=== PATIENT | female | born 1965 | race Caucasian/White ===

== ENCOUNTER 2016-07-14 07:05 | Inpatient (IN) | payer OTHER ==
[~2016-07-14] VITALS: Ht 172.7 cm; Wt 67.0 kg
[2016-07-14] VITALS (8 sets, daily range): BP systolic 91–117; BP diastolic 46–68
[~2016-07-14 07:05] MED LIST: ACYCLOVIR200 MG PO; ALBUTEROL HFA60 DOSE IN; DUREZOL0.05 % OP; NAPROSYN250 MG PO; OMEPRAZOLE20 M1 PO; PENTAZOCINE PO; WELLBUTRIN SR200 MG PO
--- NOTE | 2016-07-14 07:35 | Preoperative Progress Note ---
Preop Note Details Current Status: No Changes Current Status Changes: Increased L hip pain. No hx DVT/PE or infxn. Dilaudid for post-op pain given reactions to Morphine (anaphlaxis) and codeine (N?/V). Physical Exam: No Changes Physical Exam Changes: Operative site skin clear and marked. Necessity: Still desired/necessary
--- NOTE | 2016-07-14 08:41 | DIAGNOSTIC IMAGING REPORT ---
PROCEDURE: XR CHEST 1 VIEW INDICATION: PRE-OP CHEST, RT. HIP SURGERY TECHNIQUE: Portable AP view 06:15 a.m. COMPARISON: Chest x-ray 06/15/2016 FINDINGS: Lungs are clear. Hyperinflation. Heart and mediastinum are normal. Right axillary surgical clips. Thorax is normal. IMPRESSION: 1. No acute changes 2. Hyperinflation
--- NOTE | 2016-07-14 13:04 | Postoperative Progress Note ---
Postop Progress Note Preoperate Diagnosis: L femoral head AVN after femoral neck fx Postoperative Diagnosis: same Surgeon: Lucho Call MD Anesthesia: General ETT Findings: see dictation Procedure: Removal of cannulated screws and L total hip arthroplasty Complications? No Condition: Stable EBL: 550 mL Fluid(s): 1900 mL Drain(s): Hemovac, to be off suction until patient leaves PACU Blood Administered: None Specimen(s) removed? Yes (Femoral head and swab of screw) Specimen removed/disposition: Femoral head and swab of screw Grafts or Implants? Yes (see chart stickers) Graft/Implant type: See chart stickers . (See nursing notes for details of grafts/implants)
--- NOTE | 2016-07-14 13:50 | DIAGNOSTIC IMAGING REPORT ---
PROCEDURE: XR HIP 2VW W W/O AP PELVIS-LT INDICATION: s/p L PENNY TECHNIQUE: AP view of the pelvis and hips with lateral view of the left hip. COMPARISON: Left hip films 08/06/2015 FINDINGS: Left HIP: Total hip replacement. No fracture or dislocation. Drain is in place. PELVIS: Osseous pelvis is normal. IMPRESSION: 1. Negative pelvis and total left hip replacement.
--- NOTE | 2016-07-14 20:57 | OPERATIVE REPORT ---
DATE OF SURGERY: 07/14/2016 SURGEON: Lucho Call MD [employer] TE[employer]ER: None. PREOPERATIVE DIAGNOSIS: 1. 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 Removal of cannulated screws and left total hip arthroplasty with Sharif and Nephew Synergy hydroxyapatite plus porous-coated size 14 high offset femoral component, 36 mm diameter, +4 neck length Oxinium femoral head and 56 mm diameter R3 acetabular shell with 1 screw and lateral offset 20-degree elevated highly cross-linked polyethylene liner ANESTHESIA: General endotracheal. PATHOLOGY SPECIMEN: Swab of screw contents for Gram stain and culture, and femoral head for pathology. ESTIMATED BLOOD LOSS: 550 mL. URINE OUTPUT: 400 mL per Davis. FLUIDS: Blood replacement 1900 mL intravenous crystalloid fluids. No blood products. COMPLICATIONS: None apparent. CONDITION: Of patient leaving the operating room stable and satisfactory. INDICATIONS: A 51-year-old female sustained a valgus-impacted femoral neck fracture in 01/2015. She was treated with in situ cannulated screw fixation and went on to develop avascular necrosis with collapse and hip pain, which was refractory to corticosteroid injections and she was therefore indicated for the above-listed procedure. There was no evidence of infection at any time in her course. SURGICAL FINDINGS: The fracture appeared healed. The femoral head was aspherical with evidence of collapse. There were degenerative changes on both sides of the joint. There was yellow fluid that exuded from the first cannulated screw removed, felt likely to be marrow fat. It was sent for Gram stain and culture. There were rare white blood cells and no definitive organisms seen on Gram stain. The fracture appeared healed without evidence of osteomyelitis or septic arthritis on direct inspection. After replacement the hip was stable to nearly 90 degrees of internal rotation and 60 degrees of flexion and maximum abduction to 75 degrees of internal rotation and 90 degrees of flexion and neutral adduction. Leg lengths were felt to be clinically equal with good soft tissue tension. Postoperative plan: She will be weightbearing as tolerated. Have posterior hip precautions for 6 weeks. Deep venous thrombosis prophylaxis will be with DARELL hose pneumatic compression devices while in bed and enteric-coated aspirin 325 mg twice daily. The latter will be continued for 6 weeks postoperatively. She will return to clinic in 2 weeks' time for a wound check, 6 weeks' time for x-rays. She will have physical therapy. She will call or return for any signs or symptoms of thromboembolic disease or infection. SURGICAL TECHNIQUE: The patient was identified in the preoperative holding area. She denied any interval change in her medical condition except for increased left hip pain. She was seen and evaluated by Anesthesia after I marked her operative site and reviewed the consent form. She was brought back to the operating room, general endotracheal anesthesia was administered along with 2 g of cefazolin intravenously for antibiotic prophylaxis and 1 g of tranexamic acid. Surgical pause was completed, confirming the correct patient, operative site, procedure, appropriate availability of implants and instrumentation after the patient was positioned in the left side up lateral decubitus position on the pegboard positioner with axillary roll. We confirmed the patient 's identity. I reviewed her allergies and that appropriate thromboembolic prophylaxis and antibiotic prophylaxis were in place as described above. Everyone in the room including surgical nursing and anesthetic team members agreed that we should proceed. The leg was prepped with a safe wipe and then prepped with ChloraPrep in a circumferential sterile fashion, including the entire left hindquarter all the way down to and including the toes. Skin was sealed with Ioban. A posterior approach to the hip was performed with a sharp incision through skin and dermis. Electrocautery through subcutaneous adipose tissue, splitting the gluteus amber in line with its fibers, placing the Charnley retractor, released the piriformis from its insertion and tagged it with #2 FiberWire, performed a hockey stick capsulotomy and tagged it with two # 2 FiberWires and this included the short external rotators. These tag stitches were used for retraction and subsequent repair. The hip was dislocated posteriorly and then re-reduced into the acetabulum. The incision was carried distally and the 3 screw heads identified. The screwdriver for the acetabular screws fit the screw heads nicely and they were used to retrieve the 3 screws. The first screw in the process of removal produced a yellow fluid through the cannula, which was swabbed and sent for Gram stain and culture. Later in the case the Gram stain report showed rare white blood cells and no definitive organisms by verbal report from the circulating nurse. The 3 screws were removed and then the hip was re-dislocated. The template was placed and the proximal femoral osteotomy was made with an oscillating saw, approximately 1 cm proximal to the lesser trochanter. The femoral head was removed and sized to approximately 54 mm diameter. The soft tissue contents of the pulvinar were removed with electrocautery and hemostasis was obtained with electrocautery. The acetabular labrum was sharply excised. We began reaming with a 44 mm diameter acetabular reamer to set depth and then gradually increase the diameter to match the choctaw acetabulum in 2 mm increments at first and then single millimeter increments until we reached 55 mm where there was good punctate bleeding bone circumferentially. There is a small cyst in the acetabulum, which was curetted and found to be very shallow. The acetabulum was trialed with a 55 trial, which seemed to fit well. The definitive 56 mm R3 porous-coated acetabular shell was impacted into position and approximately 40 degrees of abduction and 20 degrees of anteversion. There was desire to increase the polyethylene thickness due to the patient's young age and therefore a +4 lateral offset acetabular liner was selected with a 20-degree elevated posterior lip for additional stability due to the posterior approach. This liner was placed after a single screw was drilled and depth gauged and placed in the acetabular component for additional stability given the plan to place a lateralizing acetabular liner with posterior elevation. The scratch fit of the acetabular shell; however, prior to placement of the screw it was felt to be excellent. Once this was completed, the acetabulum was packed off with a clean lap sponge and the proximal femur was delivered into the wound. We began with the Charnley canal finder, suctioned the canal contents, used a 9 mm reamer and lateralized and then progressively reamed up until the 14 mm reamer was felt to have cortical engagement. Next, we broached beginning with a size 9 [address] and all the way up to the size 14 broach, which obtained good purchase in appropriate anteversion and we endeavored to prevent valgus at the stem while doing this. The small and then large calcar planers were utilized, followed by a rongeur to smooth off the calcar, which was inspected and found to be intact without any splits. Next, the high offset neck adapter was placed with a 36 mm trial, +0 neck length. This was felt to provide slightly less than physiologic soft tissue tension and stability, and leg lengths were also slightly suboptimal. With the +4 neck length, the leg lengths were felt to be equal with good soft tissue tension and the stability was as described above in the operative findings to absolute stability anteriorly and extension and external rotation and adduction and excellent stability in the position of sleep with 60 degrees of flexion, maximum adduction and nearly 90 degrees of internal rotation and to nearly 75 degrees of internal rotation and 90 degrees of flexion and neutral adduction. In both cases the posterior instability was due to the femoral neck contacting the anterior acetabular liner. These findings were felt to be satisfactory. The trial components were removed, including the broach. The canal was irrigated with pulse lavage briefly and then the definitive size 14 Synergy high offset hydroxyapatite plus porous-coated stem was impacted into position and found to have an excellent press-fit. We next retrialed with the +4 , 36 neck head and found this reproduced the stability described above. The definitive Oxinium femoral head 36 mm in diameter with +4 neck length was impacted into position on a clean and dry trunnion. The hip was reduced, again trial range of motion, soft tissue tension and leg lengths were as described above and then the wound was copiously irrigated with pulsatile lavage and closed in layers over a 1/8 inch Hemovac exiting anteriorly and inferiorly. The capsule was closed with two #2 FiberWire through drill holes in the greater trochanter. The piriformis was tied down to the abductor tendon insertion just proximal to the greater trochanter. The fascia was closed with [id number] 0 Vicryl interrupted sutures. Florecita fascia was closed with [id number] 2-0 Vicryl interrupted sutures, subdermal stitch was inverted, undyed 2-0 Vicryl and the skin was closed with 3-0 V-Loc subcuticular sutures, Steri-Strips and Dermabond was used on the skin. Xeroform, 4 x 4's, ABD, and micropore tape comprised the dressing. The drain was used to instill 30 mL of 0.25% Marcaine with epinephrine and 1 g of tranexamic acid directly into the wound. We made sure that the drain was not tied in with the sutures and the drain was left off suction until the patient left the recovery room. The patient was undraped, fit with an abduction pillow, extubated in the operating room, brought to the recovery room in stable and satisfactory condition having tolerated the procedure well without apparent complication. All sponge, needle and instrument counts were reported correct prior to leaving the operating room.
[2016-07-15 05:36] VITALS: BP 92/53
[2016-07-15 06:55] VITALS: BP 93/38
--- NOTE | 2016-07-15 07:00 | Progress Note ---
Subjective General C/O hip pain but "different" then pre-op. Davis out, OOB to bathroom with RN. SCDs not connected. Denies CP, SOB, numbness or weakness as well as N/V. Constitutional Denies: Fever, Chills, Sweats, Weakness, Malaise. Respiratory Denies: SOB w/exertion. Cardiovascular Denies: Chest Pain, Palpitations. Neurological Denies: Weakness, Numbness, Incoordination, Change in speech, Confusion, Seizures. Physical Exam Vital Signs / I&Os Vital Signs Date Time Temp Pulse Resp B/P Pulse O2 O2 Flow FiO2 Ox Delivery Rate 07/15 0536 36.4 65 16 92/53 100 Room Air 07/14 2244 36.7 71 16 99/52 98 Nasal Cannula 07/14 2037 36.9 78 16 103/46 99 / 1600 36.0 63 15 114/67 100 Nasal 3.0 Cannula / 1530 36.0 71 15 116/62 100 Nasal 3.0 Cannula / 1458 36.1 82 15 109/61 100 Nasal 3.0 Cannula /03 1443 36.1 92 15 91/68 100 Nasal 3.0 Cannula 01/03 1428 35.9 68 15 113/51 100 Nasal Cannula 01/03 1412 35.9 68 15 117/60 100 Nasal 3.0 Cannula /03 1404 36.8 85 16 121/78 100 Nasal 3.0 Cannula 01/03 1355 85 15 126/77 100 Nasal 4.0 Cannula 01/03 1350 78 15 121/60 100 Nasal 3.0 Cannula 01/03 1345 95 22 108/73 100 Nasal 4.0 Cannula 01/03 1340 95 16 131/69 100 Nasal 3.0 Cannula 01/03 1335 85 12 131/69 100 Nasal 4.0 Cannula 01/03 1330 101 14 108/66 100 Nasal 4.0 Cannula 01/03 1325 83 14 108/66 100 Nasal 4.0 Cannula 01/03 1320 91 16 116/61 100 Nasal 4.0 Cannula 01/03 1315 90 15 111/64 100 Nasal 3.0 Cannula 01/03 1310 96 22 123/71 100 Nasal 3.0 Cannula 01/03 1305 80 12 106/66 94 Nasal 3.0 Cannula 01/03 1300 77 12 112/60 98 Nasal 3.0 Cannula 01/03 1255 92 13 113/66 100 Nasal 3.0 Cannula 07/14 1250 88 12 107/58 100 Nasal 3.0 Cannula 07/14 1245 92 15 107/60 100 07/14 1240 96 16 107/60 100 07/14 1235 100 14 117/61 100 Mask 6.0 07/14 1230 99 26 112/67 100 Mask 6.0 07/14 1225 86 11 111/58 100 Mask 6.0 07/14 1223 36.6 94 16 103/66 100 Mask 6.0 I&O 07/15 0000 07/14 1600 07/14 0800 Intake Total 630 3000 160 Output Total 1240 1040 Balance -610 1960 160 HVAC output 240 post-op, pt states 80 last shift. General Appearance Alert, Oriented X3, Cooperative, No acute distress Extremities Abduction pillow inplace. No apparent leg length or rotational assymetry. Dressing CDI. Bloody drainage in drain cannister. SCDs on but not connected! Skin No Breakdown, [place] and warm. Neurological Normal exam, Sensation intact, No lateralizing signs, Fires L AD& PFs & E&FHLs. Psych/Mental Status Mental status normal, Mood normal LAB Results Laboratory Tests 07/15 0600 Chemistry Plasma Sodium (136 - 145 mmol/L) 143 Plasma Potassium (3.5 - 5.1 mmol/L) 3.6 Plasma Chloride (98 - 107 mmol/L) 109 CO2 (Enzymatic) (21 - 32 mmol/L) 29 BUN (7 - 18 mg/dL) 14 Creatinine (0.6 - 1.3 mg/dL) 0.9 Est GFR ( Amer) (mL/min) >60 Est GFR (Non-Af Amer) (mL/min) >60 Glucose (70 - 110 mg/dL) 190 Plasma Calcium (8.5 - 10.1 mg/dL) 7.4 Hematology Hgb (12.0 - 16.0 gm/dL) 8.5 Hct (36.0 - 46.0 %) 26.0 Microbiology Date/Time Procedure - Status Source Growth 07/14 929 Deep Wound Culture - RES HIP 07/14 929 Deep Wound Culture - RES HIP 07/14 929 Gram Stain - RES HIP All cultures NGTD. Imaging PACU AP pelvis and lateral show well positioned L PENNY, reduced, no periprosthetic fx, good acetabular component position. Assessment and Plan Problem List 1. Status post total replacement of left hip Status Acute Onset Date 07/14/16 Plan PT, posterior hip precautions. TEDs, SCDs (now on) and ECASA 325 2x/day x 6 weeks. Leave drain for now, recheck Hct tomorrow.
[2016-07-15 10:52] VITALS: BP 109/54
[2016-07-15 14:25] VITALS: BP 105/50
[2016-07-15 18:15] VITALS: BP 128/59
[2016-07-15 22:34] VITALS: BP 108/60
[2016-07-16 02:59] VITALS: BP 101/51
--- NOTE | 2016-07-16 07:01 | Progress Note ---
Subjective General C/O L heel pain. James PO, Voiding, No BM yet. PT to work on stairs and rec DC home with boyfriend. Using PO pain meds only (ioncl dilaudid) Constitutional Denies: Fever, Chills, Sweats, Weakness, Malaise. Respiratory Denies: SOB w/exertion. Cardiovascular Denies: Chest Pain. Physical Exam Vital Signs / I&Os Vital Signs Date Time Temp Pulse Resp B/P Pulse O2 O2 Flow FiO2 Ox Delivery Rate 07/16 0259 36.7 69 16 101/51 99 Room Air 07/15 2234 36.8 85 16 108/60 96 Room Air 07/15 1815 37.3 90 18 128/59 99 Room Air 07/15 1425 36.9 75 18 105/50 100 Room Air 07/15 1052 36.7 81 16 109/54 100 Room Air 3.0 07/15 1045 100 I&O 07/16 0000 07/15 1600 07/15 0800 Intake Total 1462 1410 2372 Output Total 1580 2190 780 Balance -118 -780 1592 General Appearance Alert, Oriented X3, Cooperative, No acute distress Extremities No edema, No visible lesion on L heel. Calfs not tender. Dressings DCI. Drain clotted when removed. Skin No Breakdown, No Significant Lesions Neurological Normal exam, Sensation intact, No lateralizing signs Psych/Mental Status Mental status normal, Mood normal LAB Results Laboratory Tests 07/16 0600 Hematology Hgb (12.0 - 16.0 gm/dL) 8.0 Hct (36.0 - 46.0 %) 24.7 Assessment and Plan Problem List 1. Status post total replacement of left hip Status Acute Onset Date 07/14/16 Plan Drain removed. Continue PT anticipated DC home this pm or tomorrow when cleared by PT and after BM.
[2016-07-16 07:07] VITALS: BP 104/51
[2016-07-16 14:55] VITALS: BP 128/71
[2016-07-16 18:50] VITALS: BP 119/60
[2016-07-16 23:33] VITALS: BP 119/53
[2016-07-17 02:10] VITALS: BP 98/52
[2016-07-17 07:22] VITALS: BP 119/74
--- NOTE | 2016-07-17 07:48 | Progress Note ---
Subjective General No new c/o. No BM yet. Awaiting PT to document safety on stairs for DC home today. Constitutional Denies: Fever, Chills, Sweats, Weakness, Malaise. Musculoskeletal Foot Pain (heel pain improving.). Neurological Denies: Weakness, Numbness. Physical Exam Vital Signs / I&Os Vital Signs Date Time Temp Pulse Resp B/P Pulse O2 O2 Flow FiO2 Ox Delivery Rate 07/17 0722 37.2 80 18 119/74 98 Room Air 0.0 07/17 0210 36.8 80 16 98/52 96 Room Air 07/16 2333 37.2 89 16 119/53 98 Room Air 07/16 2045 Room Air 07/16 1850 37.7 87 18 119/60 98 Room Air 07/16 1455 36.9 84 18 128/71 100 Room Air 07/16 0859 Room Air I&O 07/17 0000 07/16 1600 07/16 0800 Intake Total 899 1200 1375 Output Total 2200 1400 1070 Balance -1301 -200 305 General Appearance Alert, Oriented X3, Cooperative, No acute distress Extremities SCDs off, TEDs on. Calf nontender. No LLD. Skin Incision CDI, new dressings applied Neurological Normal exam, No lateralizing signs Psych/Mental Status Mental status normal, Mood normal LAB Results Laboratory Tests 07/17 0555 Hematology Hgb (12.0 - 16.0 gm/dL) 8.5 Hct (36.0 - 46.0 %) 26.2 All intra-op cultures No Growth to date. Assessment and Plan Problem List 1. Status post total replacement of left hip Status Acute Onset Date 07/14/16 Plan Doing well POD#3. Anticipate3 DC home today after BM and cleared by PT. RTC ~ 2 weeks already scheduled. ECASA 325mg 2x/day x 6 weeks.
[2016-07-17] MEDS ORDERED: TYLENOL325 MG PO (07:57)
[2016-07-17] MEDS ORDERED: FERROUS SULFAT324 M1 PO (07:57)
[2016-07-17] MEDS ORDERED: ENTERIC COATED325 M1 PO (07:59)
[2016-07-17] MEDS ORDERED: HYDROMORPHONE HC2 MG PO (08:00)
[2016-07-17] MEDS ORDERED: BISAC-EVAC10 MG PR (08:01)
[2016-07-17] MEDS ORDERED: DOCUSATE SODIU100 MG PO (08:01)
--- NOTE | 2016-07-17 08:06 | Provider's Discharge Care Plan ---
Problem, Goal, Plan Problem List 1. Status post total replacement of left hip Goals: No readmissions, see last progress note Instructions: Follow up as needed (Keep dressing on and dry.), Follow up as directed, Take meds as directed
--- NOTE | 2016-07-17 13:35 | Discharge Summary ---
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 Hospital Course Had screw removal, culture and left total hip replacement via posterior approach on day of admission. Intra-op cultures have been no growth. Drain removed POD# 2, pain controlled with PO hydromorphone, voiding and finally had bowel movement after suppository on day of discharge. Cleared for DC home by PT. Incisions looked good at time of DC. General Appearance Alert, Oriented X3, Cooperative, No acute distress Skin No Breakdown Neurological Sensation intact, motor function intact Psych/Mental Status Mental status NL, Mood NL Lab/Imaging Laboratory Tests 07/17 0555 Hematology Hgb (12.0 - 16.0 gm/dL) 8.5 Hct (36.0 - 46.0 %) 26.2 Discharge Instructions/Meds Keep incsions dressed and dry until f/u in clinic in 2 weeks. ECASA 325 mg 2x/ day x 6 weeks. WBAT with L posterior hip precautions x 6 weeks. Call for fever > 101F, signs of infection, CP or SOB.
== END 2016-07-17 11:42 | disposition home or self-care (01) | DRG 470 ==
LOC: SCU SRH 07:05 → U SRH 07:30 → ACUTE2 SRH 12:56
PROVIDERS: ADMIT Orthopaedic Surgery
PROC: 0SRB0JA Replacement of Left Hip Joint with Synthetic Substitute, Uncemented, Open Approach (ICD-10-PCS; principal; 2016-07-14 07:30)
PROC: 0QP704Z Removal of Internal Fixation Device from Left Upper Femur, Open Approach (ICD-10-PCS; principal; 2016-07-14 07:30)
DX: M87.252 Osteonecrosis due to previous trauma, left femur (principal); Z87.81 Personal history of (healed) traumatic fracture; M16.7 Other unilateral secondary osteoarthritis of hip; J44.9 Chronic obstructive pulmonary disease, unspecified; E11.9 Type 2 diabetes mellitus without complications; F17.210 Nicotine dependence, cigarettes, uncomplicated

== ENCOUNTER 2016-11-02 13:55 | Emergency (ER) | payer SELFPAY ==
[~2016-11-02 13:55] MED LIST changes: +BISAC-EVAC10 MG PR; +DOCUSATE SODIU100 MG PO; +ENTERIC COATED325 M1 PO; +FERROUS SULFAT324 M1 PO; +HYDROMORPHONE HC2 MG PO; +TYLENOL325 MG PO
--- NOTE | 2016-11-02 15:34 | DIAGNOSTIC IMAGING REPORT ---
PROCEDURE: CT HEAD WITHOUT CONTRAST INDICATION: HEADACHE TECHNIQUE: Axial CT images were acquired through the head. Coronal and sagittal reformations were created. COMPARISON: : Comparison is made to MRI brain (09/24/2014), and head CT (12/14/2014). FINDINGS: Suboccipital craniectomy with normal postoperative appearance. 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 Brain ventricles are otherwise normal and there is no evidence of acute process or hemorrhage. There is no evidence of mass effect hydrocephalus. Sinuses and mastoids are normal. IMPRESSION: 1. Suboccipital craniectomy with normal postoperative appearance. 2. Otherwise negative head CT. 3. Findings discussed with Toyin at 03:[address] scans at this facility use dose modulation, iterative reconstruction, and/or weight-based dosing when appropriate to reduce radiation dose to as low as reasonably achievable.
--- NOTE | 2016-11-02 18:57 | ED ORDER SUMMARY ---
..... Patient: LEONILA KIM OrderSheet [facility] VisitID: [id number] [address] [place] [address] 51y, F Registration Date/Time: 11/02/2016 ORDER SHEET Weight: 54.4 kg (stated) Allergies: Codeine, Morphine and Related GENERAL ORDERS: CT Head wo Cont Urgent (14:24 11/02/2016 EKoroleva P.A.-C) (Ack 14:26 KHoerner) (15:10 JBoardley R.N.) CBC w Diff Urgent (14:25 11/02/2016 EKoroleva P.A.-C) (Ack 14:26 KHoerner) (14:43 JBoardley R.N.) CMP Urgent (14:11/02/2016 EKoroleva P.A.-C) (Ack 14:26 KHoerner) (14:43 JBoardley R.N.) CSF, Cell Count Urgent (16:25 11/02/2016 EKoroleva P.A.-C) (Ack 16:26 KHoerner) (18:02 JSanders R.N.) CSF, Culture Urgent (16:25 11/02/2016 EKoroleva P.A.-C) (Ack 16:26 KHoerner) (18:02 JSanders R.N.) CSF, Glucose Urgent (16:25 11/02/2016 EKoroleva P.A.-C) (Ack 16:26 KHoerner) (18:02 JSanders R.N.) CSF, Protein Urgent (16:25 11/02/2016 EKoroleva P.A.-C) (Ack 16:26 KHoerner) (18:02 JSanders R.N.) LP Tray (16:25 11/02/2016 EKoroleva P.A.-C) (Ack 16:31 JBoardley R.N.) (17:02 JSanders R.N.) MEDICATION ORDERS: Meclizine PO 25 mg (NOW) (14:25 11/02/2016 EKoroleva P.A.-C) (Ack 14:31 JBoardley R.N.) (14:49 JBoardley R.N.) Phenergan IV 12.5 mg (HIGH ALERT MEDICATION, NOW) (14:25 11/02/2016 EKoroleva P.A.-C) (Ack 14:31 JBoardley R.N.) (14:50 JBoardley R.N.) IV FLUIDS: IV NS : initial bolus 1000 mL (1000 mL/hr), then 1000 mL/hr for X1 (NOW); Arjun (14:25 11/02/2016 EKoroleva P.A.-C) (Ack 14:31 JBoardley R.N.) (14:44 JBoardley R.N.) Toradol IV 30 mg (NOW) (14:11/02/2016 EKoroleva P.A.-C) (Ack 14:31 JBoardley R.N.) (14:49 JBoardley R.N.) Benadryl IV 25 mg (NOW) (14:11/02/2016 EKoroleva P.A.-C) (Ack 14:31 JBoardley R.N.) (14:50 JBoardley R.N.) Dilaudid IV 1 mg (HIGH ALERT MEDICATION, NOW) (18:02 11/02/2016 EKoroleva P.A.-C) (Ack 18:05 JSanders R.N.) (18:14 JSanders R.N.) ORDER SHEET NOTES: [Electronically signed by Luz Maria Jones R.N. (19:19 11/02/2016)] [Electronically signed by Michell Deal PKeonAKeon-C (23:44 11/02/2016)] [Electronically signed by Abiel Crabtree MD (23:32 11/03/2016)] [Electronically locked/signed by Luz Maria Jones R.N. (19:19 11/02/2016)]
--- NOTE | 2016-11-02 18:57 | ED NURSING NOTES ---
Clinical Report - Nurses [facility] [address] [place] [address] 11/02/2016 13:57 [id number] TRI[facility] Triage time 14:05. Acuity: LEVEL 4. Chief Complaint: MIGRAINE HEADACHE. 14:11/02/16. 14:11/02/16. Alert. No acute distress. ( Migraine BRODY that started 4 days ago. Pt states her pain is radiating from her forehead down left side of face.). SEPSIS SCREEN: Sepsis Screen. Negative (no infection suspected/documented). SANTINO COMA SCORE: Santino Coma Scale: 15- eyes open spontaneously (4); best verbal response- oriented x 4 (5); best motor response- obeys commands (6). --14:12 Justus Fierro R.N. 14:11/02/16. BP: 141/94. HR: 74. RR: 18. O2 saturation: 100% on room air. Temp: 98.1 F (oral). Pain level now: 01/18. --14:12 Justus Fierro R.N. Weight: 54.4 kg stated. Height/Length: 68 inches Per Patient. BMI: 18.2. --14:06 Justus Fierro R.N. Medications Acyclovir External. --14:08 Justus Fierro R.N. Wellbutrin Oral. --14:09 Justus Fierro R.N. Medication/allergy information source: the patient. --14:12 Justus Fierro R.N. Allergies Codeine. Morphine and Related. --14:08 Justus Fierro R.N. History Arrived by private vehicle. Historian: patient. Accompanied by family. Primary physician (NONE). 14:06 11/02/16. ( 4 days ago). Treatment NETWORK DESIGNER: (Naproxen at 0400). PAST MEDICAL HX: Immunizations: up-to-date. SOCIAL HX: Current every day light tobacco smoker (cigarette)- less than 1/2 a pack per day. No alcohol use or drug use. No recent travel. No infectious disease exposure. No known contact with a sick individual. ABUSE ASSESSMENT: No report of abuse. FALL RISK ASSESSMENT: Fall risk assessment completed. No fall risk identified. NUTRITIONAL RISK ASSESSMENT: The nutritional risk assessment revealed no deficiencies. FUNCTIONAL ASSESSMENT: Functional assessment: no impairments noted. LEARNING NEEDS ASSESSMENT: The learning needs assessment revealed no barriers. SKIN INTEGRITY ASSESSMENT: Skin integrity risk assessment completed. No skin integrity risk identified. --14:12 Justus Fierro R.N. PROBLEMS: Bursitis. Arthritis. Contusion. Hip Fracture. Headache. Impacted Cerumen. Vomiting. Vertigo. Hypertension. Gastroesophageal Reflux. --14:09 Justus Fierro R.N. Abdominal Pain [Resolved]. Hypovolemia [Resolved]. Recent Travel [Resolved]. --14:09 Justus Fierro R.N. ADDITIONAL SURGERIES: Appendectomy. Brain Surgery. Colonoscopy. Endoscopy. Hip Surgery. Hysterectomy. Mastectomy. Oophorectomy. Polyps removed from colon. Salpingectomy. Skin CA. Tonsillectomy. --14:09 Justus Fierro R.N. Assessment 14:11/02/16. --14:12 Justus Fierro R.N. Interventions 14:11/02/16. 14:11/02/16. ID and allergy band on patient. To treatment room. --14:12 Justus Fierro R.N. PHYSICAL ASSESSMENT 14:11/02/16. GENERAL / NEURO / PSYCH: Alert. Oriented X 4. Appears in pain. Speech within normal limits. RESPIRATORY: Respirations not labored. CVS: Capillary refill less than 2 seconds. SKIN: Skin is warm and dry. --14:12 Justus Fierro R.N. NURSING PROGRESS NOTES 14:11/02/16. Two patient identifiers checked. Call light placed in reach. Side rails up x 2. Bed placed in lowest position. Brakes of bed on. --14:12 Justus Fierro R.N. 14:12 11/02/16. The plan of care for this patient has been created. Head of bed elevated. Lights dimmed. --14:12 Justus Fierro R.N. 14:33 11/02/2016 Site #1 started via IV in the left antecubital space with an 20g angiocath, with aseptic technique and good blood return; one attempt. Blood drawn: rainbow set. Labeled in the presence of the patient and sent to the lab. Saline lock flushed with 10 mL saline. --14:43 Justus Fierro R.N. 14:34 11/02/2016 Meclizine PO 25 mg given. Allergies verified, confirmed 5 rights and sedative warning given to the patient. --14:49 Justus Fierro R.N. 14:38 11/02/2016 Started bag #1 1000 mL IV Fluids IV NS (Saline); at 1000 mL/hr over 1 hour(s) via site #1. Allergies verified and confirmed 5 rights. IV patency established. IV site checked: no pain, redness, or swelling. IV flushed thoroughly pre- and post-medication administration. Completed per protocol. --14:44 Justus Fierro R.N. 14:49 11/02/2016 Toradol IVP 30 mg given over 2 minute(s) via site #1. Allergies verified and confirmed 5 rights. IV patency established. IV site checked: no pain, redness, or swelling. IV flushed thoroughly pre- and post-medication administration. IVP given by RN. --14:49 Justus Fierro R.N. 14:50 11/02/2016 PHENERGAN (Promethazine HCl) IVP 12.5 mg given over 2 minute(s) via site #1. Allergies verified and confirmed 5 rights. IV patency established. IV site checked: no pain, redness, or swelling. IV flushed thoroughly pre- and post-medication administration. IVP given by RN. --14:50 Justus Fierro R.N. 14:50 11/02/2016 Benadryl (DiphenhydrAMINE HCl) IVP 25 mg given over 2 minute(s) via site #1. Allergies verified, confirmed 5 rights and sedative warning given to the patient. IV patency established. IV site checked: no pain, redness, or swelling. IV flushed thoroughly pre- and post-medication administration. IVP given by RN. --14:50 Justus Fierro R.N. 15:04 11/02/16. ( Pt moved to room room 11). --15:04 Justus Fierro R.N. 15:56 11/02/16. --15:56 Luz Maria Jones R.N. 15:55 11/02/16. BP: 146/81 (regular adult cuff) taken on the left arm, while sitting. HR: 73. RR: 16. O2 saturation: 100% on room air. Pain level now: 10/19. --15:56 Luz Maria Jones R.N. 18:14 11/02/2016 Dilaudid (HYDROmorphone HCl PF) IVP 1 mg given over 2 minute(s) via site #1. Allergies verified, confirmed 5 rights and sedative warning given to the patient. IV patency established. IV site checked: no pain, redness, or swelling. IV flushed thoroughly pre- and post-medication administration. IVP given by RN. --18:14 Luz Maria Jones R.N. 18:14 11/02/2016 IV Fluids IV NS Discontinued: bag #1 completed. Total amount infused: 1000 mL. IV patency established. IV site checked: no pain, redness, or swelling. IV flushed thoroughly. --18:15 Luz Maria Jones R.N. 18:16 11/02/16. BP: 149/80 (regular adult cuff) taken on the left arm, while lying. HR: 72. RR: 18. O2 saturation: 96% on room air. Pain level now: 01/18. --18:18 Luz Maria Jones R.N. 18:17 11/02/16. Monitoring of patient in place. Head of bed elevated (Patient laying flat after LP). Call light placed in reach. Side rails up x 2. Bed placed in lowest position. Brakes of bed on. ( Patients friend at patients bedside. Patient will be placed on monitors.). --18:18 Luz Maria Jones R.N. 18:43 11/02/16. BP: 122/84 (regular adult cuff) taken on the left arm, while lying. HR: 65. RR: 18. O2 saturation: 97% on room air. Pain level now: 08/21. --18:45 Luz Maria Jones R.N. 18:45 11/02/2016 Dilaudid IVP Response: no adverse reaction pain is improving. Symptoms have improved the patient feels better. --18:46 Luz Maria Jones R.N. 18:45 11/02/16. ( Patient feeling much better she reports). --18:45 Luz Maria Jones R.N. DISPOSITION / DISCHARGE 19:09 11/02/16. BP: 144/83 (regular adult cuff) taken on the left arm, while lying. HR: 63. RR: 18. O2 saturation: 100% on room air. Pain level now: 08/21. --19:12 Luz Maria Jones R.N. 19:12 11/02/2016 Site #1 removed upon discharge. Bandaid applied. --19:17 LuzM aria Jones R.N. 19:12 11/02/16. Condition at departure: improved. No learning barriers present. Reviewed medication(s) side effects, precautions and dosing information. Prescription(s) given to the patient. Patient verbalized understanding. Written instructions provided in Armenian. The patient was discharged by the physician circulation assistant. She was discharged home. She left the Emergency Department ambulatory and via private vehicle. Driving (Friend). --19:12 Luz Maria Jones R.N. Departure time: 19:Nov 02 2016. --19:18 Luz Maria Jones R.N. Locked/Released at 11/02/2016 19:19 by Luz Maria Jones R.N.
--- NOTE | 2016-11-02 18:57 | ED CLINICAL REPORT ---
Clinical Report - Physicians/Mid Levels [facility] [address] [place] [address] 11/02/2016 13:57 Patient: LEONILA KIM Time Seen: 14:25 Nov 02 2016. Arrived- By private vehicle. Historian- patient. HISTORY OF PRESENT ILLNESS Chief Complaint: HEADACHE. Is still present. This started about 4 days ago. It was abrupt in onset and has been waxing/waning. It is described as similar to previous headaches. Located in the frontal and left maxillary region and region of the left eye. No neck pain. At its maximum, severity described as severe. When seen in the E.D., severity described as severe. The patient has had photophobia. No associated nausea, numbness, weakness or vomiting. (Patient is status post brain surgery with history of Chiari malformation and , has not had major issues, has had a few headaches since, this headache has been ongoing for 4 days, with no improvement. At a cousin primarily on the left side, on the facial aspect into the jaw. Radiating answer for for head. Denies any emesis. Has nausea. Patient also reports vertigo, sensation or room spinning when she stands. She has had such in the past, however not as severe.). REVIEW OF SYSTEMS No sinus pressure. All systems otherwise negative, except as recorded above. PAST HISTORY Problems: Chiari malformation. Bursitis. Arthritis. Contusion. Hip Fracture. Fall. Cellulitis. Headache. Impacted Cerumen. Vomiting. Vertigo. Enteritis. Leukocytosis. Hypertension. Weakness. Gastroesophageal Reflux. Immunizations. LNMP - Last Normal Menstrual Period. Additional Surgeries: Appendectomy. Brain Surgery. Colonoscopy. Endoscopy. Hip Surgery. Hysterectomy. Mastectomy. Oophorectomy. Polyps removed from colon. Salpingectomy. Skin CA. Tonsillectomy. Medications: Wellbutrin Oral. Acyclovir External. Allergies: Codeine. Morphine and Related. SOCIAL HISTORY Current every day light tobacco smoker (cigarette)- less than 1/2 a pack per day. No alcohol use or drug use. ADDITIONAL NOTES The nursing notes have been reviewed. PHYSICAL EXAM Vital Signs: 11/02/2016 14:05 BP: 141/94. HR: 74. RR: 18. O2 saturation: 100%. Temp: 98.1 F. Pain level now: 01/18. Appearance: Alert. Eyes: Pupils equal, round and reactive to light. Eyes normal inspection. ENT: Ears normal. Nose normal. Neck: Normal inspection. Neck supple. No meningeal signs or carotid bruit. CVS: Normal heart rate and rhythm. Heart sounds normal. Pulses normal. Respiratory: No respiratory distress. Breath sounds normal. Abdomen: Soft and nontender. No organomegaly. No abdominal tenderness or organomegaly. The bowel sounds are not abnormal. Skin: Skin warm. Normal skin color. Neuro: Oriented X 3. Alert. Mood/affect normal. Cranial nerves normal (as tested). No cerebellar findings. No motor deficit. LABS, X-RAYS, AND EKG Laboratory Tests: CBC w Diff: (YIN: 11/02/2016 14:45) ( [facility] 11/02/2016 15:25) Final results Test Result Flag Units (Reference) WHITE BLOOD COUNT 9.5 K/uL (4.5-11.5) RED BLOOD COUNT 5.28 H M/uL (4.00-5.20) HEMOGLOBIN 13.8 gm/dL (12.0-16.0) HEMATOCRIT 42.4 % (36.0-46.0) MEAN CELL VOLUME 80 fL (80-100) MEAN CORPUSCULAR HGB 26 pg (26-34) MEAN CORPUSCULAR HGB CONC 33 g/dL (31-37) RED CELL DISTRIBUTION WIDTH 17.1 H % (11.6-14.8) PLATELET COUNT 364 K/uL (150-400) NEUTROPHIL % 71.5 % (50-75) LYMPH % 21.8 L % (25-40) MONO % 5.7 % (3-14) EOSINOPHIL % 0.6 % (0-4) BASOPHIL % 0.4 % (0-2) CMP: (YIN: 11/02/2016 14:45) ( [facility] 11/02/2016 15:40) Final results Test Result Flag Units (Reference) GLUCOSE 98 mg/dL (70-110) BUN 20 H mg/dL (7-18) CREATININE 0.6 mg/dL (0.6-1.3) Estimated GFR >60 mL/min Estimated GFR- >60 mL/min Note: Persistent reduction over 3 months in eGFR<60 mL/min/1.73 m2 defines CKD. Patients with eGFR values>=60 mL/min/1.73 m2 may also have CKD if evidence ofpersistent proteinuria. Additional information may be foundat www.kidney.org. SODIUM 143 mmol/L (136-145) POTASSIUM 4.3 mmol/L (3.5-5.1) CHLORIDE 105 mmol/L (98-107) CARBON DIOXIDE 26 mmol/L (21-32) CALCIUM 9.0 mg/dL (8.5-10.1) TOTAL PROTEIN 7.8 g/dL (6.4-8.2) ALBUMIN 4.5 g/dL (3.3-5.0) BILIRUBIN, TOTAL 0.3 mg/dL (0.0-1.0) ALKALINE PHOSPHATASE 84 U/L (46-116) AST (SGOT) 16 U/L (15-37) ALT (SGPT) 21 U/L (12-78) CSF, Cell Count: (YIN: 11/02/2016 17:50) ( MsgRcvd 11/02/2016 18:34) Final results Test Result Flag Units (Reference) CSF TOTAL VOLUME 4.0 CC TUBE # 4 COLOR COLORLESS APPEARANCE CLEAR CSF WBC 0 WBC/mm3 (0-5) CSF RBC 1 RBC/mm3 (0-5) CSF GLUCOSE 65 mg/dL (40-75) CSF PROTEIN 35.6 mg/dL (15-45) . PROGRESS AND PROCEDURES Course of Care: Symptoms better. Vital signs have been reviewed. Physical exam findings are improved. Patient/family counseled. Old medical records reviewed. Disposition: Discharged. Condition: stable. CLINICAL IMPRESSION Acute headache. INSTRUCTIONS Warnings: Further evaluation is necessary. Prescription Medications: Zofran (orally disintegrating tablets) 4 mg: take 1 orally every 6 hours for 3 days as needed for nausea. Dispense ten (10). No refill. Substitution is permissible. Ultram 50 mg: take 1 orally every 6 hours for 3 days. Dispense ten (10). No refills. Substitution is permissible. Follow-up: Follow up with a specialist. (Electronically signed by Abiel Crabtree MD 11/03/2016 23:32) Time Seen: 14:25 Nov 02 2016. Arrived- By private vehicle. Historian- patient. HISTORY OF PRESENT ILLNESS Chief Complaint: HEADACHE. Is still present. Located in the frontal and left maxillary region and region of the left eye. (Patient is status post brain surgery with history of Chiari malformation and 20/15, has not had major issues, has had a few headaches since, this headache has been ongoing for 4 days, with no improvement. At a cousin primarily on the left side, on the facial aspect into the jaw. Radiating answer for for head. Denies any emesis. Has nausea. Patient also reports vertigo, sensation or room spinning when she stands. She has had such in the past, however not as severe.). REVIEW OF SYSTEMS No sinus pressure. All systems otherwise negative, except as recorded above. PAST HISTORY Problems: Chiari malformation. Bursitis. Arthritis. Contusion. Hip Fracture. Fall. Cellulitis. Headache. Impacted Cerumen. Vomiting. Vertigo. Enteritis. Leukocytosis. Hypertension. Weakness. Gastroesophageal Reflux. Immunizations. LNMP - Last Normal Menstrual Period. Additional Surgeries: Appendectomy. Brain Surgery. Colonoscopy. Endoscopy. Hip Surgery. Hysterectomy. Mastectomy. Oophorectomy. Polyps removed from colon. Salpingectomy. Skin CA. Tonsillectomy. Medications: Wellbutrin Oral. Acyclovir External. Allergies: Codeine. Morphine and Related. ADDITIONAL NOTES The nursing notes have been reviewed. PHYSICAL EXAM Vital Signs: 11/02/2016 14:05 BP: 141/94. HR: 74. RR: 18. O2 saturation: 100%. Temp: 98.1 F. Pain level now: 7/10. Appearance: Alert. No apparent distress. Does not appear to be anxious. Eyes: Pupils equal, round and reactive to light. Eyes normal inspection. (no palpable pain). ENT: Ears normal. Nose normal. Neck: Normal inspection. Neck supple. No meningeal signs or carotid bruit. CVS: Normal heart rate and rhythm. Heart sounds normal. Pulses normal. Respiratory: No respiratory distress. Breath sounds normal. Abdomen: Soft and nontender. No organomegaly. No abdominal tenderness or organomegaly. The bowel sounds are not abnormal. Skin: Skin warm. Normal skin color. Neuro: Oriented X 3. Alert. Mood/affect normal. Cranial nerves normal (as tested). No cerebellar findings. No motor deficit. No sensory deficit. LABS, X-RAYS, AND EKG CT Head: (IMPRESSION: 1. Suboccipital craniectomy with normal postoperative appearance. 2. Otherwise negative head CT. 3. Findings discussed with Toyin at 03:[address] scans at this facility use dose modulation, iterative reconstruction, and/or weight-based dosing when appropriate to reduce radiation dose to as low as reasonably achievable. Electronically Final signed by:Deangelo Taylor MD 11/02/2016 3:34:31 PM). Laboratory Tests: CBC w Diff: (YIN: 11/02/2016 14:45) ( MsgRcvd 11/02/2016 15:25) Final results Test Result Flag Units (Reference) WHITE BLOOD COUNT 9.5 K/uL (4.5-11.5) RED BLOOD COUNT 5.28 H M/uL (4.00-5.20) HEMOGLOBIN 13.8 gm/dL (12.0-16.0) HEMATOCRIT 42.4 % (36.0-46.0) MEAN CELL VOLUME 80 fL (80-100) MEAN CORPUSCULAR HGB 26 pg (26-34) MEAN CORPUSCULAR HGB CONC 33 g/dL (31-37) RED CELL DISTRIBUTION WIDTH 17.1 H % (11.6-14.8) PLATELET COUNT 364 K/uL (150-400) NEUTROPHIL % 71.5 % (50-75) LYMPH % 21.8 L % (25-40) MONO % 5.7 % (3-14) EOSINOPHIL % 0.6 % (0-4) BASOPHIL % 0.4 % (0-2) CMP: (YIN: 11/02/2016 14:45) ( NjgRcvd 11/02/2016 15:40) Final results Test Result Flag Units (Reference) GLUCOSE 98 mg/dL (70-110) BUN 20 H mg/dL (7-18) CREATININE 0.6 mg/dL (0.6-1.3) Estimated GFR >60 mL/min Estimated GFR- >60 mL/min Note: Persistent reduction over 3 months in eGFR<60 mL/min/1.73 m2 defines CKD. Patients with eGFR values>=60 mL/min/1.73 m2 may also have CKD if evidence ofpersistent proteinuria. Additional information may be foundat www.kidney.org. SODIUM 143 mmol/L (136-145) POTASSIUM 4.3 mmol/L (3.5-5.1) CHLORIDE 105 mmol/L (98-107) CARBON DIOXIDE 26 mmol/L (21-32) CALCIUM 9.0 mg/dL (8.5-10.1) TOTAL PROTEIN 7.8 g/dL (6.4-8.2) ALBUMIN 4.5 g/dL (3.3-5.0) BILIRUBIN, TOTAL 0.3 mg/dL (0.0-1.0) ALKALINE PHOSPHATASE 84 U/L (46-116) AST (SGOT) 16 U/L (15-37) ALT (SGPT) 21 U/L (12-78) CSF, Cell Count: (YIN: 11/02/2016 17:50) ( [facility] 11/02[facility] 18:34) Final results Test Result Flag Units (Reference) CSF TOTAL VOLUME 4.0 CC TUBE # 4 COLOR COLORLESS APPEARANCE CLEAR CSF WBC 0 WBC/mm3 (0-5) CSF RBC 1 RBC/mm3 (0-5) CSF GLUCOSE 65 mg/dL (40-75) CSF PROTEIN 35.6 mg/dL (15-45) CSF, Culture: (YIN: 11/02/2016 17:50) ( MsgRcvd 11/02/2016 19:00) IP Test Result Flag Units (Reference) GRAM STAIN, CSF DATE: 11/02/16 NO CELLS/NO BACTERIA: NO CELLS OR BACTERIA SEEN . PROGRESS AND PROCEDURES Course of Care: Acute CT findings. Discussed case with Dr. Crabtree, will conclude a ENT of the head. Otherwise patient stable. CBC and labs here are unremarkable. Cannot exclude small subarachnoid hemorrhage, over from her LP, in consultation with Dr. Crabtree. Patient understands and agrees with plan. All P results are rather unremarkable. Patient very stable. On palpation. She is encouraged to follow up with her neurologist, this may represent a migraine variant, may represent trigeminal neuralgia. She has no otherwise signs of infectious process no facial swelling, no dental pain. Or periodontal disease is active in nature. Patient is stable. Physical exam findings are improved. Symptoms better. Patient/family counseled. Differential Diagnosis: I considered migraine, cluster headache, vascular malformation, vascular dissection, malignant hypertension, bacterial meningitis, encephalitis, sinusitis, carbon monoxide exposure, subdural hematoma, concussion, muscle tension, acute angle-closure glaucoma, temporomandibular joint disease, pseudo-tumor cerebri and intracranial neoplasm as a possible cause of headache in this patient. This is a partial list of diagnoses considered. Disposition: Discharged. CLINICAL IMPRESSION Acute headache. INSTRUCTIONS Warnings: Further evaluation is necessary. Prescription Medications: Zofran (orally disintegrating tablets) 4 mg: take 1 orally every 6 hours for 3 days as needed for nausea. Dispense ten (10). No refill. Substitution is permissible. Ultram 50 mg: take 1 orally every 6 hours for 3 days. Dispense ten (10). No refills. Substitution is permissible. Follow-up: Follow up with a specialist. (Electronically signed by Michell Deal P.A.-C 11/02/2016 23:44)
--- NOTE | 2016-11-02 18:57 | ED CLINICAL REPORT ---
Clinical Report - Physicians/Mid Levels [facility] [address] [place] [address] 11/02/2016 13:57 Patient: LEONILA KIM Time Seen: 14:25 Nov 02 2016. Arrived- By private vehicle. Historian- patient. HISTORY OF PRESENT ILLNESS Chief Complaint: HEADACHE. Is still present. This started about 4 days ago. It was abrupt in onset and has been waxing/waning. It is described as similar to previous headaches. Located in the frontal and left maxillary region and region of the left eye. No neck pain. At its maximum, severity described as severe. When seen in the E.D., severity described as severe. The patient has had photophobia. No associated nausea, numbness, weakness or vomiting. (Patient is status post brain surgery with history of Chiari malformation and , has not had major issues, has had a few headaches since, this headache has been ongoing for 4 days, with no improvement. At a cousin primarily on the left side, on the facial aspect into the jaw. Radiating answer for for head. Denies any emesis. Has nausea. Patient also reports vertigo, sensation or room spinning when she stands. She has had such in the past, however not as severe.). REVIEW OF SYSTEMS No sinus pressure. All systems otherwise negative, except as recorded above. PAST HISTORY Problems: Chiari malformation. Bursitis. Arthritis. Contusion. Hip Fracture. Fall. Cellulitis. Headache. Impacted Cerumen. Vomiting. Vertigo. Enteritis. Leukocytosis. Hypertension. Weakness. Gastroesophageal Reflux. Immunizations. LNMP - Last Normal Menstrual Period. Additional Surgeries: Appendectomy. Brain Surgery. Colonoscopy. Endoscopy. Hip Surgery. Hysterectomy. Mastectomy. Oophorectomy. Polyps removed from colon. Salpingectomy. Skin CA. Tonsillectomy. Medications: Wellbutrin Oral. Acyclovir External. Allergies: Codeine. Morphine and Related. SOCIAL HISTORY Current every day light tobacco smoker (cigarette)- less than 1/2 a pack per day. No alcohol use or drug use. ADDITIONAL NOTES The nursing notes have been reviewed. PHYSICAL EXAM Vital Signs: 11/02/2016 14:05 BP: 141/94. HR: 74. RR: 18. O2 saturation: 100%. Temp: 98.1 F. Pain level now: 01/18. Appearance: Alert. Eyes: Pupils equal, round and reactive to light. Eyes normal inspection. ENT: Ears normal. Nose normal. Neck: Normal inspection. Neck supple. No meningeal signs or carotid bruit. CVS: Normal heart rate and rhythm. Heart sounds normal. Pulses normal. Respiratory: No respiratory distress. Breath sounds normal. Abdomen: Soft and nontender. No organomegaly. No abdominal tenderness or organomegaly. The bowel sounds are not abnormal. Skin: Skin warm. Normal skin color. Neuro: Oriented X 3. Alert. Mood/affect normal. Cranial nerves normal (as tested). No cerebellar findings. No motor deficit. LABS, X-RAYS, AND EKG Laboratory Tests: CBC w Diff: (YIN: 11/02/2016 14:45) ( [facility] 11/02/2016 15:25) Final results Test Result Flag Units (Reference) WHITE BLOOD COUNT 9.5 K/uL (4.5-11.5) RED BLOOD COUNT 5.28 H M/uL (4.00-5.20) HEMOGLOBIN 13.8 gm/dL (12.0-16.0) HEMATOCRIT 42.4 % (36.0-46.0) MEAN CELL VOLUME 80 fL (80-100) MEAN CORPUSCULAR HGB 26 pg (26-34) MEAN CORPUSCULAR HGB CONC 33 g/dL (31-37) RED CELL DISTRIBUTION WIDTH 17.1 H % (11.6-14.8) PLATELET COUNT 364 K/uL (150-400) NEUTROPHIL % 71.5 % (50-75) LYMPH % 21.8 L % (25-40) MONO % 5.7 % (3-14) EOSINOPHIL % 0.6 % (0-4) BASOPHIL % 0.4 % (0-2) CMP: (YIN: 11/02/2016 14:45) ( [facility] 11/02/2016 15:40) Final results Test Result Flag Units (Reference) GLUCOSE 98 mg/dL (70-110) BUN 20 H mg/dL (7-18) CREATININE 0.6 mg/dL (0.6-1.3) Estimated GFR >60 mL/min Estimated GFR- >60 mL/min Note: Persistent reduction over 3 months in eGFR<60 mL/min/1.73 m2 defines CKD. Patients with eGFR values>=60 mL/min/1.73 m2 may also have CKD if evidence ofpersistent proteinuria. Additional information may be foundat www.kidney.org. SODIUM 143 mmol/L (136-145) POTASSIUM 4.3 mmol/L (3.5-5.1) CHLORIDE 105 mmol/L (98-107) CARBON DIOXIDE 26 mmol/L (21-32) CALCIUM 9.0 mg/dL (8.5-10.1) TOTAL PROTEIN 7.8 g/dL (6.4-8.2) ALBUMIN 4.5 g/dL (3.3-5.0) BILIRUBIN, TOTAL 0.3 mg/dL (0.0-1.0) ALKALINE PHOSPHATASE 84 U/L (46-116) AST (SGOT) 16 U/L (15-37) ALT (SGPT) 21 U/L (12-78) CSF, Cell Count: (YIN: 11/02/2016 17:50) ( MsgRcvd 11/02/2016 18:34) Final results Test Result Flag Units (Reference) CSF TOTAL VOLUME 4.0 CC TUBE # 4 COLOR COLORLESS APPEARANCE CLEAR CSF WBC 0 WBC/mm3 (0-5) CSF RBC 1 RBC/mm3 (0-5) CSF GLUCOSE 65 mg/dL (40-75) CSF PROTEIN 35.6 mg/dL (15-45) . PROGRESS AND PROCEDURES Course of Care: Symptoms better. Vital signs have been reviewed. Physical exam findings are improved. Patient/family counseled. Old medical records reviewed. Disposition: Discharged. Condition: stable. CLINICAL IMPRESSION Acute headache. INSTRUCTIONS Warnings: Further evaluation is necessary. Prescription Medications: Zofran (orally disintegrating tablets) 4 mg: take 1 orally every 6 hours for 3 days as needed for nausea. Dispense ten (10). No refill. Substitution is permissible. Ultram 50 mg: take 1 orally every 6 hours for 3 days. Dispense ten (10). No refills. Substitution is permissible. Follow-up: Follow up with a specialist. (Electronically signed by Abiel Crabtree MD 11/03/2016 23:32) Time Seen: 14:25 Nov 02 2016. Arrived- By private vehicle. Historian- patient. HISTORY OF PRESENT ILLNESS Chief Complaint: HEADACHE. Is still present. Located in the frontal and left maxillary region and region of the left eye. (Patient is status post brain surgery with history of Chiari malformation and 20/15, has not had major issues, has had a few headaches since, this headache has been ongoing for 4 days, with no improvement. At a cousin primarily on the left side, on the facial aspect into the jaw. Radiating answer for for head. Denies any emesis. Has nausea. Patient also reports vertigo, sensation or room spinning when she stands. She has had such in the past, however not as severe.). REVIEW OF SYSTEMS No sinus pressure. All systems otherwise negative, except as recorded above. PAST HISTORY Problems: Chiari malformation. Bursitis. Arthritis. Contusion. Hip Fracture. Fall. Cellulitis. Headache. Impacted Cerumen. Vomiting. Vertigo. Enteritis. Leukocytosis. Hypertension. Weakness. Gastroesophageal Reflux. Immunizations. LNMP - Last Normal Menstrual Period. Additional Surgeries: Appendectomy. Brain Surgery. Colonoscopy. Endoscopy. Hip Surgery. Hysterectomy. Mastectomy. Oophorectomy. Polyps removed from colon. Salpingectomy. Skin CA. Tonsillectomy. Medications: Wellbutrin Oral. Acyclovir External. Allergies: Codeine. Morphine and Related. ADDITIONAL NOTES The nursing notes have been reviewed. PHYSICAL EXAM Vital Signs: 11/02/2016 14:05 BP: 141/94. HR: 74. RR: 18. O2 saturation: 100%. Temp: 98.1 F. Pain level now: 7/10. Appearance: Alert. No apparent distress. Does not appear to be anxious. Eyes: Pupils equal, round and reactive to light. Eyes normal inspection. (no palpable pain). ENT: Ears normal. Nose normal. Neck: Normal inspection. Neck supple. No meningeal signs or carotid bruit. CVS: Normal heart rate and rhythm. Heart sounds normal. Pulses normal. Respiratory: No respiratory distress. Breath sounds normal. Abdomen: Soft and nontender. No organomegaly. No abdominal tenderness or organomegaly. The bowel sounds are not abnormal. Skin: Skin warm. Normal skin color. Neuro: Oriented X 3. Alert. Mood/affect normal. Cranial nerves normal (as tested). No cerebellar findings. No motor deficit. No sensory deficit. LABS, X-RAYS, AND EKG CT Head: (IMPRESSION: 1. Suboccipital craniectomy with normal postoperative appearance. 2. Otherwise negative head CT. 3. Findings discussed with Toyin at 03:[address] scans at this facility use dose modulation, iterative reconstruction, and/or weight-based dosing when appropriate to reduce radiation dose to as low as reasonably achievable. Electronically Final signed by:Deangelo Taylor MD 11/02/2016 3:34:31 PM). Laboratory Tests: CBC w Diff: (YIN: 11/02/2016 14:45) ( MsgRcvd 11/02/2016 15:25) Final results Test Result Flag Units (Reference) WHITE BLOOD COUNT 9.5 K/uL (4.5-11.5) RED BLOOD COUNT 5.28 H M/uL (4.00-5.20) HEMOGLOBIN 13.8 gm/dL (12.0-16.0) HEMATOCRIT 42.4 % (36.0-46.0) MEAN CELL VOLUME 80 fL (80-100) MEAN CORPUSCULAR HGB 26 pg (26-34) MEAN CORPUSCULAR HGB CONC 33 g/dL (31-37) RED CELL DISTRIBUTION WIDTH 17.1 H % (11.6-14.8) PLATELET COUNT 364 K/uL (150-400) NEUTROPHIL % 71.5 % (50-75) LYMPH % 21.8 L % (25-40) MONO % 5.7 % (3-14) EOSINOPHIL % 0.6 % (0-4) BASOPHIL % 0.4 % (0-2) CMP: (YIN: 11/02/2016 14:45) ( MtgRcvd 11/02/2016 15:40) Final results Test Result Flag Units (Reference) GLUCOSE 98 mg/dL (70-110) BUN 20 H mg/dL (7-18) CREATININE 0.6 mg/dL (0.6-1.3) Estimated GFR >60 mL/min Estimated GFR- >60 mL/min Note: Persistent reduction over 3 months in eGFR<60 mL/min/1.73 m2 defines CKD. Patients with eGFR values>=60 mL/min/1.73 m2 may also have CKD if evidence ofpersistent proteinuria. Additional information may be foundat www.kidney.org. SODIUM 143 mmol/L (136-145) POTASSIUM 4.3 mmol/L (3.5-5.1) CHLORIDE 105 mmol/L (98-107) CARBON DIOXIDE 26 mmol/L (21-32) CALCIUM 9.0 mg/dL (8.5-10.1) TOTAL PROTEIN 7.8 g/dL (6.4-8.2) ALBUMIN 4.5 g/dL (3.3-5.0) BILIRUBIN, TOTAL 0.3 mg/dL (0.0-1.0) ALKALINE PHOSPHATASE 84 U/L (46-116) AST (SGOT) 16 U/L (15-37) ALT (SGPT) 21 U/L (12-78) CSF, Cell Count: (YIN: 11/02/2016 17:50) ( [facility] 11/[facility] 18:34) Final results Test Result Flag Units (Reference) CSF TOTAL VOLUME 4.0 CC TUBE # 4 COLOR COLORLESS APPEARANCE CLEAR CSF WBC 0 WBC/mm3 (0-5) CSF RBC 1 RBC/mm3 (0-5) CSF GLUCOSE 65 mg/dL (40-75) CSF PROTEIN 35.6 mg/dL (15-45) CSF, Culture: (YIN: 11/02/2016 17:50) ( MsgRcvd 11/02/2016 19:00) IP Test Result Flag Units (Reference) GRAM STAIN, CSF DATE: 11/02/16 NO CELLS/NO BACTERIA: NO CELLS OR BACTERIA SEEN . PROGRESS AND PROCEDURES Course of Care: Acute CT findings. Discussed case with Dr. Crabtree, will conclude a ENT of the head. Otherwise patient stable. CBC and labs here are unremarkable. Cannot exclude small subarachnoid hemorrhage, over from her LP, in consultation with Dr. Crabtree. Patient understands and agrees with plan. All P results are rather unremarkable. Patient very stable. On palpation. She is encouraged to follow up with her neurologist, this may represent a migraine variant, may represent trigeminal neuralgia. She has no otherwise signs of infectious process no facial swelling, no dental pain. Or periodontal disease is active in nature. Patient is stable. Physical exam findings are improved. Symptoms better. Patient/family counseled. Differential Diagnosis: I considered migraine, cluster headache, vascular malformation, vascular dissection, malignant hypertension, bacterial meningitis, encephalitis, sinusitis, carbon monoxide exposure, subdural hematoma, concussion, muscle tension, acute angle-closure glaucoma, temporomandibular joint disease, pseudo-tumor cerebri and intracranial neoplasm as a possible cause of headache in this patient. This is a partial list of diagnoses considered. Disposition: Discharged. CLINICAL IMPRESSION Acute headache. INSTRUCTIONS Warnings: Further evaluation is necessary. Prescription Medications: Zofran (orally disintegrating tablets) 4 mg: take 1 orally every 6 hours for 3 days as needed for nausea. Dispense ten (10). No refill. Substitution is permissible. Ultram 50 mg: take 1 orally every 6 hours for 3 days. Dispense ten (10). No refills. Substitution is permissible. Follow-up: Follow up with a specialist. (Electronically signed by Michell Deal P.A.-C 11/02/2016 23:44)
--- NOTE | 2016-11-02 18:57 | ED ORDER SUMMARY ---
..... Patient: LEONILA KIM OrderSheet [facility] VisitID: [id number] [address] [place] [address] 51y, F Registration Date/Time: 11/02/2016 ORDER SHEET Weight: 54.4 kg (stated) Allergies: Codeine, Morphine and Related GENERAL ORDERS: CT Head wo Cont Urgent (14:24 11/02/2016 EKoroleva P.A.-C) (Ack 14:26 KHoerner) (15:10 JBoardley R.N.) CBC w Diff Urgent (14:25 11/02/2016 EKoroleva P.A.-C) (Ack 14:26 KHoerner) (14:43 JBoardley R.N.) CMP Urgent (14:11/02/2016 EKoroleva P.A.-C) (Ack 14:26 KHoerner) (14:43 JBoardley R.N.) CSF, Cell Count Urgent (16:25 11/02/2016 EKoroleva P.A.-C) (Ack 16:26 KHoerner) (18:02 JSanders R.N.) CSF, Culture Urgent (16:25 11/02/2016 EKoroleva P.A.-C) (Ack 16:26 KHoerner) (18:02 JSanders R.N.) CSF, Glucose Urgent (16:25 11/02/2016 EKoroleva P.A.-C) (Ack 16:26 KHoerner) (18:02 JSanders R.N.) CSF, Protein Urgent (16:25 11/02/2016 EKoroleva P.A.-C) (Ack 16:26 KHoerner) (18:02 JSanders R.N.) LP Tray (16:25 11/02/2016 EKoroleva P.A.-C) (Ack 16:31 JBoardley R.N.) (17:02 JSanders R.N.) MEDICATION ORDERS: Meclizine PO 25 mg (NOW) (14:25 11/02/2016 EKoroleva P.A.-C) (Ack 14:31 JBoardley R.N.) (14:49 JBoardley R.N.) Phenergan IV 12.5 mg (HIGH ALERT MEDICATION, NOW) (14:25 11/02/2016 EKoroleva P.A.-C) (Ack 14:31 JBoardley R.N.) (14:50 JBoardley R.N.) IV FLUIDS: IV NS : initial bolus 1000 mL (1000 mL/hr), then 1000 mL/hr for X1 (NOW); Arjun (14:25 11/02/2016 EKoroleva P.A.-C) (Ack 14:31 JBoardley R.N.) (14:44 JBoardley R.N.) Toradol IV 30 mg (NOW) (14:11/02/2016 EKoroleva P.A.-C) (Ack 14:31 JBoardley R.N.) (14:49 JBoardley R.N.) Benadryl IV 25 mg (NOW) (14:11/02/2016 EKoroleva P.A.-C) (Ack 14:31 JBoardley R.N.) (14:50 JBoardley R.N.) Dilaudid IV 1 mg (HIGH ALERT MEDICATION, NOW) (18:02 11/02/2016 EKoroleva P.A.-C) (Ack 18:05 JSanders R.N.) (18:14 JSanders R.N.) ORDER SHEET NOTES: [Electronically signed by Luz Maria Jones R.N. (19:19 11/02/2016)] [Electronically signed by Michell Deal PKeonAKeon-C (23:44 11/02/2016)] [Electronically signed by Abiel Crabtree MD (23:32 11/03/2016)] [Electronically locked/signed by Luz Maria Jones R.N. (19:19 11/02/2016)]
--- NOTE | 2016-11-02 18:57 | ED NURSING NOTES ---
Clinical Report - Nurses [facility] [address] [place] [address] 11/02/2016 13:57 [id number] TRI[facility] Triage time 14:05. Acuity: LEVEL 4. Chief Complaint: MIGRAINE HEADACHE. 14:11/02/16. 14:11/02/16. Alert. No acute distress. ( Migraine BRODY that started 4 days ago. Pt states her pain is radiating from her forehead down left side of face.). SEPSIS SCREEN: Sepsis Screen. Negative (no infection suspected/documented). SANTINO COMA SCORE: Santino Coma Scale: 15- eyes open spontaneously (4); best verbal response- oriented x 4 (5); best motor response- obeys commands (6). --14:12 Justus Fierro R.N. 14:11/02/16. BP: 141/94. HR: 74. RR: 18. O2 saturation: 100% on room air. Temp: 98.1 F (oral). Pain level now: 01/18. --14:12 Justus Fierro R.N. Weight: 54.4 kg stated. Height/Length: 68 inches Per Patient. BMI: 18.2. --14:06 Justus Fierro R.N. Medications Acyclovir External. --14:08 Justus Fierro R.N. Wellbutrin Oral. --14:09 Justus Fierro R.N. Medication/allergy information source: the patient. --14:12 Justus Fierro R.N. Allergies Codeine. Morphine and Related. --14:08 Justus Fierro R.N. History Arrived by private vehicle. Historian: patient. Accompanied by family. Primary physician (NONE). 14:06 11/02/16. ( 4 days ago). Treatment RECONDITIONING ASSOCIATE: (Naproxen at 0400). PAST MEDICAL HX: Immunizations: up-to-date. SOCIAL HX: Current every day light tobacco smoker (cigarette)- less than 1/2 a pack per day. No alcohol use or drug use. No recent travel. No infectious disease exposure. No known contact with a sick individual. ABUSE ASSESSMENT: No report of abuse. FALL RISK ASSESSMENT: Fall risk assessment completed. No fall risk identified. NUTRITIONAL RISK ASSESSMENT: The nutritional risk assessment revealed no deficiencies. FUNCTIONAL ASSESSMENT: Functional assessment: no impairments noted. LEARNING NEEDS ASSESSMENT: The learning needs assessment revealed no barriers. SKIN INTEGRITY ASSESSMENT: Skin integrity risk assessment completed. No skin integrity risk identified. --14:12 Justus Fierro R.N. PROBLEMS: Bursitis. Arthritis. Contusion. Hip Fracture. Headache. Impacted Cerumen. Vomiting. Vertigo. Hypertension. Gastroesophageal Reflux. --14:09 Justus Fierro R.N. Abdominal Pain [Resolved]. Hypovolemia [Resolved]. Recent Travel [Resolved]. --14:09 Justus Fierro R.N. ADDITIONAL SURGERIES: Appendectomy. Brain Surgery. Colonoscopy. Endoscopy. Hip Surgery. Hysterectomy. Mastectomy. Oophorectomy. Polyps removed from colon. Salpingectomy. Skin CA. Tonsillectomy. --14:09 Justus Fierro R.N. Assessment 14:11/02/16. --14:12 Justus Fierro R.N. Interventions 14:11/02/16. 14:11/02/16. ID and allergy band on patient. To treatment room. --14:12 Justus Fierro R.N. PHYSICAL ASSESSMENT 14:11/02/16. GENERAL / NEURO / PSYCH: Alert. Oriented X 4. Appears in pain. Speech within normal limits. RESPIRATORY: Respirations not labored. CVS: Capillary refill less than 2 seconds. SKIN: Skin is warm and dry. --14:12 Justus Fierro R.N. NURSING PROGRESS NOTES 14:11/02/16. Two patient identifiers checked. Call light placed in reach. Side rails up x 2. Bed placed in lowest position. Brakes of bed on. --14:12 Justus Fierro R.N. 14:12 11/02/16. The plan of care for this patient has been created. Head of bed elevated. Lights dimmed. --14:12 Justus Fierro R.N. 14:33 11/02/2016 Site #1 started via IV in the left antecubital space with an 20g angiocath, with aseptic technique and good blood return; one attempt. Blood drawn: rainbow set. Labeled in the presence of the patient and sent to the lab. Saline lock flushed with 10 mL saline. --14:43 Justus Fierro R.N. 14:34 11/02/2016 Meclizine PO 25 mg given. Allergies verified, confirmed 5 rights and sedative warning given to the patient. --14:49 Justus Fierro R.N. 14:38 11/02/2016 Started bag #1 1000 mL IV Fluids IV NS (Saline); at 1000 mL/hr over 1 hour(s) via site #1. Allergies verified and confirmed 5 rights. IV patency established. IV site checked: no pain, redness, or swelling. IV flushed thoroughly pre- and post-medication administration. Completed per protocol. --14:44 Justus Fierro R.N. 14:49 11/02/2016 Toradol IVP 30 mg given over 2 minute(s) via site #1. Allergies verified and confirmed 5 rights. IV patency established. IV site checked: no pain, redness, or swelling. IV flushed thoroughly pre- and post-medication administration. IVP given by RN. --14:49 Justus Fierro R.N. 14:50 11/02/2016 PHENERGAN (Promethazine HCl) IVP 12.5 mg given over 2 minute(s) via site #1. Allergies verified and confirmed 5 rights. IV patency established. IV site checked: no pain, redness, or swelling. IV flushed thoroughly pre- and post-medication administration. IVP given by RN. --14:50 Justus Fierro R.N. 14:50 11/02/2016 Benadryl (DiphenhydrAMINE HCl) IVP 25 mg given over 2 minute(s) via site #1. Allergies verified, confirmed 5 rights and sedative warning given to the patient. IV patency established. IV site checked: no pain, redness, or swelling. IV flushed thoroughly pre- and post-medication administration. IVP given by RN. --14:50 Justus Fierro R.N. 15:04 11/02/16. ( Pt moved to room room 11). --15:04 Justus Fierro R.N. 15:56 11/02/16. --15:56 Luz Maria Jones R.N. 15:55 11/02/16. BP: 146/81 (regular adult cuff) taken on the left arm, while sitting. HR: 73. RR: 16. O2 saturation: 100% on room air. Pain level now: 10/19. --15:56 Luz Maria Jones R.N. 18:14 11/02/2016 Dilaudid (HYDROmorphone HCl PF) IVP 1 mg given over 2 minute(s) via site #1. Allergies verified, confirmed 5 rights and sedative warning given to the patient. IV patency established. IV site checked: no pain, redness, or swelling. IV flushed thoroughly pre- and post-medication administration. IVP given by RN. --18:14 Luz Maria Jones R.N. 18:14 11/02/2016 IV Fluids IV NS Discontinued: bag #1 completed. Total amount infused: 1000 mL. IV patency established. IV site checked: no pain, redness, or swelling. IV flushed thoroughly. --18:15 Luz Maria Jones R.N. 18:16 11/02/16. BP: 149/80 (regular adult cuff) taken on the left arm, while lying. HR: 72. RR: 18. O2 saturation: 96% on room air. Pain level now: 01/18. --18:18 Luz Maria Jones R.N. 18:17 11/02/16. Monitoring of patient in place. Head of bed elevated (Patient laying flat after LP). Call light placed in reach. Side rails up x 2. Bed placed in lowest position. Brakes of bed on. ( Patients friend at patients bedside. Patient will be placed on monitors.). --18:18 Luz Maria Jones R.N. 18:43 11/02/16. BP: 122/84 (regular adult cuff) taken on the left arm, while lying. HR: 65. RR: 18. O2 saturation: 97% on room air. Pain level now: 08/21. --18:45 Luz Maria Jones R.N. 18:45 11/02/2016 Dilaudid IVP Response: no adverse reaction pain is improving. Symptoms have improved the patient feels better. --18:46 Luz Maria Jones R.N. 18:45 11/02/16. ( Patient feeling much better she reports). --18:45 Luz Maria Jones R.N. DISPOSITION / DISCHARGE 19:09 11/02/16. BP: 144/83 (regular adult cuff) taken on the left arm, while lying. HR: 63. RR: 18. O2 saturation: 100% on room air. Pain level now: 08/21. --19:12 Luz Maria Jones R.N. 19:12 11/02/2016 Site #1 removed upon discharge. Bandaid applied. --19:17 Luz Maria Jones R.N. 19:12 11/02/16. Condition at departure: improved. No learning barriers present. Reviewed medication(s) side effects, precautions and dosing information. Prescription(s) given to the patient. Patient verbalized understanding. Written instructions provided in [place]. The patient was discharged by the physician medical services assistant. She was discharged home. She left the Emergency Department ambulatory and via private vehicle. Driving (Friend). --19:12 Luz Maria Jones R.N. Departure time: 19:Nov 02 2016. --19:18 Luz Maria Jones R.N. Locked/Released at 11/02/2016 19:19 by Luz Maria Jones R.N.
--- NOTE | 2016-11-03 23:32 | ED MAR SUMMARY ---
..... Medication Administration Record [facility] [address] [place] [address] Patient: LEONILA KIM Visit ID: [id number] 51y, F Weight: 54.4 kg Height/Length: 68 in BMI: 18.2 ALLERGIES: Codeine, Morphine and Related Given 14:34 11/02/2016 Justus Fierro R.N. Medication Administered: MECLIZINE [PO], Dose: 25 mg PO. Medication Ordered: Meclizine PO 25 mg (NOW). Start 14:38 11/02/2016 Justus Fierro R.N., Stop 18:14 11/02/2016 Luz Maria Jones R.N. Medication Administered: IV NS (SALINE), Dose: IV Fluids over 1 hour(s), Rate: 1000 mL/hr, Dispensed: 1000 mL bag, Site: #1 left AC. Medication Ordered: IV NS : initial bolus 1000 mL (1000 mL/hr), then 1000 mL/hr for X1 (NOW); Arjun. Given 14:49 11/02/2016 Justus Fierro R.N. Medication Administered: TORADOL [IVP], Dose: 30 mg IVP over 2 minute(s), Site: #1 left AC. Medication Ordered: Toradol IV 30 mg (NOW). Given 14:50 11/02/2016 Justus Fierro R.N. Medication Administered: PHENERGAN [IVP] (PROMETHAZINE HCL), Dose: 12.5 mg IVP over 2 minute(s), Site: #1 left AC. Medication Ordered: Phenergan IV 12.5 mg (HIGH ALERT MEDICATION, NOW). Given 14:50 11/02/2016 Justus Fierro R.N. Medication Administered: BENADRYL [IVP] (DIPHENHYDRAMINE HCL), Dose: 25 mg IVP over 2 minute(s), Site: #1 left AC. Medication Ordered: Benadryl IV 25 mg (NOW). Given 18:14 11/02/2016 Luz Maria Jones R.N. Medication Administered: DILAUDID [IVP] (HYDROMORPHONE HCL PF), Dose: 1 mg IVP over 2 minute(s), Site: #1 left AC. Medication Ordered: Dilaudid IV 1 mg (HIGH ALERT MEDICATION, NOW).
--- NOTE | 2016-11-03 23:32 | ED MED RECONCILIATION SUMMARY ---
Patient: LEONILA KIM Medication Reconciliation Report [facility] VisitID: [id number] [address] [place] [address] 51y, F Registration Date/Time: 11/02/2016 Weight: 54.4 kg Height/Length: 68 in. BMI: 18.2 ALLERGIES: Codeine, Morphine and Related The patient's Home Medications are listed below: THE FOLLOWING MEDICATIONS NEED TO BE RECONCILED: Acyclovir External Wellbutrin Oral The source(s) of the original Home Medication information: patient The following Medications were given to the patient in the Emergency Department: IV NS IV Fluids bolus 0, then 1000 mL/hr, administered: 11/02/2016 2:38:00 PM Toradol [IVP] IVP 30 mg, administered: 11/02/2016 2:49:00 PM Meclizine [PO] PO 25 mg, administered: 11/02/2016 2:34:00 PM PHENERGAN [IVP] IVP 12.5 mg, administered: 11/02/2016 2:50:00 PM Benadryl [IVP] IVP 25 mg, administered: 11/02/2016 2:50:00 PM Dilaudid [IVP] IVP 1 mg, administered: 11/02/2016 6:14:00 PM The following Medications were prescribed to the patient: Zofran (orally disintegrating tablets) 4 mg: take 1 orally every 6 hours for 3 days as needed for nausea. Dispense ten (10). No refill. Substitution is permissible. -- Koroleva, Michell, P.A.-C Ultram 50 mg: take 1 orally every 6 hours for 3 days. Dispense ten (10). No refills. Substitution is permissible. -- Koroleva, Michell, P.A.-C Zofran (orally disintegrating tablets) 4 mg: take 1 orally every 6 hours for 3 days as needed for nausea. Dispense ten (10). No refill. Substitution is permissible. -- Koroleva, Michell, P.A.-C Ultram 50 mg: take 1 orally every 6 hours for 3 days. Dispense ten (10). No refills. Substitution is permissible. -- Koroleva, Michell, P.A.-C
--- NOTE | 2016-11-03 23:32 | ED MED RECONCILIATION SUMMARY ---
Patient: LEONILA KIM Medication Reconciliation Report [facility] VisitID: [id number] [address] [place] [address] 51y, F Registration Date/Time: 11/02/2016 Weight: 54.4 kg Height/Length: 68 in. BMI: 18.2 ALLERGIES: Codeine, Morphine and Related The patient's Home Medications are listed below: THE FOLLOWING MEDICATIONS NEED TO BE RECONCILED: Acyclovir External Wellbutrin Oral The source(s) of the original Home Medication information: patient The following Medications were given to the patient in the Emergency Department: IV NS IV Fluids bolus 0, then 1000 mL/hr, administered: 11/02/2016 2:38:00 PM Toradol [IVP] IVP 30 mg, administered: 11/02/2016 2:49:00 PM Meclizine [PO] PO 25 mg, administered: 11/02/2016 2:34:00 PM PHENERGAN [IVP] IVP 12.5 mg, administered: 11/02/2016 2:50:00 PM Benadryl [IVP] IVP 25 mg, administered: 11/02/2016 2:50:00 PM Dilaudid [IVP] IVP 1 mg, administered: 11/02/2016 6:14:00 PM The following Medications were prescribed to the patient: Zofran (orally disintegrating tablets) 4 mg: take 1 orally every 6 hours for 3 days as needed for nausea. Dispense ten (10). No refill. Substitution is permissible. -- Koroleva, Michell, P.A.-C Ultram 50 mg: take 1 orally every 6 hours for 3 days. Dispense ten (10). No refills. Substitution is permissible. -- Koroleva, Michell, P.A.-C Zofran (orally disintegrating tablets) 4 mg: take 1 orally every 6 hours for 3 days as needed for nausea. Dispense ten (10). No refill. Substitution is permissible. -- Koroleva, Michell, P.A.-C Ultram 50 mg: take 1 orally every 6 hours for 3 days. Dispense ten (10). No refills. Substitution is permissible. -- Koroleva, Michell, P.A.-C
--- NOTE | 2016-11-03 23:32 | ED MAR SUMMARY ---
..... Medication Administration Record [facility] [address] [place] [address] Patient: LEONILA KIM Visit ID: [id number] 51y, F Weight: 54.4 kg Height/Length: 68 in BMI: 18.2 ALLERGIES: Codeine, Morphine and Related Given 14:34 11/02/2016 Justus Fierro R.N. Medication Administered: MECLIZINE [PO], Dose: 25 mg PO. Medication Ordered: Meclizine PO 25 mg (NOW). Start 14:38 11/02/2016 Justus Fierro R.N., Stop 18:14 11/02/2016 Luz Maria Jones R.N. Medication Administered: IV NS (SALINE), Dose: IV Fluids over 1 hour(s), Rate: 1000 mL/hr, Dispensed: 1000 mL bag, Site: #1 left AC. Medication Ordered: IV NS : initial bolus 1000 mL (1000 mL/hr), then 1000 mL/hr for X1 (NOW); Arjun. Given 14:49 11/02/2016 Justus Fierro R.N. Medication Administered: TORADOL [IVP], Dose: 30 mg IVP over 2 minute(s), Site: #1 left AC. Medication Ordered: Toradol IV 30 mg (NOW). Given 14:50 11/02/2016 Justus Fierro R.N. Medication Administered: PHENERGAN [IVP] (PROMETHAZINE HCL), Dose: 12.5 mg IVP over 2 minute(s), Site: #1 left AC. Medication Ordered: Phenergan IV 12.5 mg (HIGH ALERT MEDICATION, NOW). Given 14:50 11/02/2016 Justus Fierro R.N. Medication Administered: BENADRYL [IVP] (DIPHENHYDRAMINE HCL), Dose: 25 mg IVP over 2 minute(s), Site: #1 left AC. Medication Ordered: Benadryl IV 25 mg (NOW). Given 18:14 11/02/2016 Luz Maria Jones R.N. Medication Administered: DILAUDID [IVP] (HYDROMORPHONE HCL PF), Dose: 1 mg IVP over 2 minute(s), Site: #1 left AC. Medication Ordered: Dilaudid IV 1 mg (HIGH ALERT MEDICATION, NOW).
--- NOTE | 2016-11-03 23:32 | ED DISCHARGE INSTRUCTIONS ---
Patient: LEONILA KIM General Instructions [facility] VisitID: [id number] [address] [address] 51y, F Registration Date/Time: 11/02/2016 Acute headache. INSTRUCTIONS Warnings: Further evaluation is necessary. Prescription Medications: Zofran (orally disintegrating tablets) 4 mg: take 1 orally every 6 hours for 3 days as needed for nausea. Dispense ten (10). No refill. Substitution is permissible. Ultram 50 mg: take 1 orally every 6 hours for 3 days. Dispense ten (10). No refills. Substitution is permissible. Follow-up: Follow up with a specialist. ADDITIONAL INFORMATION Headache [Unspecified] The cause of your headache today is not clear, but it does not appear to be the sign of any serious illness. Under stress, some people tense the muscles of their shoulder, neck and scalp without knowing it. If this condition lasts long enough, a TENSION HEADACHE can occur. A MIGRAINE HEADACHE is caused by changes in blood flow to the brain. A migraine attack may be triggered by emotional stress, hormone changes during the menstrual cycle, oral contraceptives, alcohol use, certain foods containing tyramine, eye strain, weather changes, missing meals, lack of sleep or oversleeping. Other causes of headache include a viral illness with high fever, head injury with concussion, sinus, ear or throat infection, dental pain and TMJ (jaw joint) pain. More serious but less common causes of headache include stroke, brain hemorrhage, brain tumor, meningitis and encephalitis. Home Care: If you were given pain medicine for this headache, do not drive yourself home. Arrange for a ride, instead. When you get home, try to sleep. You should feel much better when you wake up. Apply heat to the back of your neck to relieve neck muscle spasm. Migraine headaches may respond best to an ice pack on the forehead or at the base of the skull. If you are having nausea or vomiting, follow a light diet until your headache is relieved. If you have a migraine type headache, use sunglasses when in the daylight or around bright indoor lighting until symptoms improve. Bright glaring light can worsen this kind of headache. Follow Up with your doctor if the headache is not better within the next 24 hours. If you have frequent headaches you should discuss a treatment plan with your primary care doctor. By being aware of the earliest signs of headache, and starting treatment right away, you may be able to stop the pain yourself. Get Prompt Medical Attention if any of the following occur: Worsening of your head pain or no improvement within 24 hours Repeated vomiting (unable to keep liquids down) Fever of 100.4F (38C) or higher, or as directed by your healthcare provider Stiff neck Extreme drowsiness, confusion or fainting Dizziness, vertigo (dizziness with spinning sensation) Weakness of an arm or leg or one side of the face Difficulty with speech or vision Ondansetron Hydrochloride Oral tablet What is this medicine? ONDANSETRON (on STACEY se suzan) is used to treat nausea and vomiting caused by chemotherapy. It is also used to prevent or treat nausea and vomiting after surgery. How should I use this medicine? Take this medicine by mouth with a glass of water. Follow the directions on your prescription label. Take your doses at regular intervals. Do not take your medicine more often than directed. Talk to your database programmer analyst regarding the use of this medicine in children. Special care may be needed. What side effects may I notice from receiving this medicine? Side effects that you should report to your doctor or health nursing care attendant as soon as possible: allergic reactions like skin rash, itching or hives, swelling of the face, lips or tongue breathing problems dizziness fast or irregular heartbeat feeling faint or lightheaded, falls fever and chills swelling of the hands or feet tightness in the chest Side effects that usually do not require medical attention (report to your doctor or health nursing care attendant if they continue or are bothersome): constipation or diarrhea headache What may interact with this medicine? Do not take this medicine with any of the following medications: -apomorphine -cisapride -dofetilide -dronedarone -pimozide -thioridazine -ziprasidone This medicine may also interact with the following medications: -carbamazepine -phenytoin -rifampicin -tramadol -other medicines that prolong the QT interval (cause an abnormal heart rhythm) What if I miss a dose? If you miss a dose, take it as soon as you can. If it is almost time for your next dose, take only that dose. Do not take double or extra doses. Where should I keep my medicine? Keep out of the reach of children. Store between 2 and 30 degrees C (36 and 86 degrees F). Throw away any unused medicine after the expiration date. What should I tell my health care provider before I take this medicine? They need to know if you have any of these conditions: heart disease history of irregular heartbeat liver disease low levels of magnesium or potassium in the blood an unusual or allergic reaction to ondansetron, granisetron, other medicines, foods, dyes, or preservatives or trying to get breast-feeding What should I watch for while using this medicine? Check with your doctor or health nursing care attendant right away if you have any sign of an allergic reaction. You have been given the following additional information: Headache, Unspecified Ondansetron Hydrochloride Oral tablet (Electronically signed by Abiel Crabtree MD 11/03/2016 23:32) Acute headache. INSTRUCTIONS Warnings: Further evaluation is necessary. Prescription Medications: Zofran (orally disintegrating tablets) 4 mg: take 1 orally every 6 hours for 3 days as needed for nausea. Dispense ten (10). No refill. Substitution is permissible. Ultram 50 mg: take 1 orally every 6 hours for 3 days. Dispense ten (10). No refills. Substitution is permissible. Follow-up: Follow up with a specialist. ADDITIONAL INFORMATION Headache [Unspecified] The cause of your headache today is not clear, but it does not appear to be the sign of any serious illness. Under stress, some people tense the muscles of their shoulder, neck and scalp without knowing it. If this condition lasts long enough, a TENSION HEADACHE can occur. A MIGRAINE HEADACHE is caused by changes in blood flow to the brain. A migraine attack may be triggered by emotional stress, hormone changes during the menstrual cycle, oral contraceptives, alcohol use, certain foods containing tyramine, eye strain, weather changes, missing meals, lack of sleep or oversleeping. Other causes of headache include a viral illness with high fever, head injury with concussion, sinus, ear or throat infection, dental pain and TMJ (jaw joint) pain. More serious but less common causes of headache include stroke, brain hemorrhage, brain tumor, meningitis and encephalitis. Home Care: If you were given pain medicine for this headache, do not drive yourself home. Arrange for a ride, instead. When you get home, try to sleep. You should feel much better when you wake up. Apply heat to the back of your neck to relieve neck muscle spasm. Migraine headaches may respond best to an ice pack on the forehead or at the base of the skull. If you are having nausea or vomiting, follow a light diet until your headache is relieved. If you have a migraine type headache, use sunglasses when in the daylight or around bright indoor lighting until symptoms improve. Bright glaring light can worsen this kind of headache. Follow Up with your doctor if the headache is not better within the next 24 hours. If you have frequent headaches you should discuss a treatment plan with your primary care doctor. By being aware of the earliest signs of headache, and starting treatment right away, you may be able to stop the pain yourself. Get Prompt Medical Attention if any of the following occur: Worsening of your head pain or no improvement within 24 hours Repeated vomiting (unable to keep liquids down) Fever of 100.4F (38C) or higher, or as directed by your healthcare provider Stiff neck Extreme drowsiness, confusion or fainting Dizziness, vertigo (dizziness with spinning sensation) Weakness of an arm or leg or one side of the face Difficulty with speech or vision Ondansetron Hydrochloride Oral tablet What is this medicine? ONDANSETRON (on STACEY se suzan) is used to treat nausea and vomiting caused by chemotherapy. It is also used to prevent or treat nausea and vomiting after surgery. How should I use this medicine? Take this medicine by mouth with a glass of water. Follow the directions on your prescription label. Take your doses at regular intervals. Do not take your medicine more often than directed. Talk to your database programmer analyst regarding the use of this medicine in children. Special care may be needed. What side effects may I notice from receiving this medicine? Side effects that you should report to your doctor or health nursing care attendant as soon as possible: allergic reactions like skin rash, itching or hives, swelling of the face, lips or tongue breathing problems dizziness fast or irregular heartbeat feeling faint or lightheaded, falls fever and chills swelling of the hands or feet tightness in the chest Side effects that usually do not require medical attention (report to your doctor or health nursing care attendant if they continue or are bothersome): constipation or diarrhea headache What may interact with this medicine? Do not take this medicine with any of the following medications: -apomorphine -cisapride -dofetilide -dronedarone -pimozide -thioridazine -ziprasidone This medicine may also interact with the following medications: -carbamazepine -phenytoin -rifampicin -tramadol -other medicines that prolong the QT interval (cause an abnormal heart rhythm) What if I miss a dose? If you miss a dose, take it as soon as you can. If it is almost time for your next dose, take only that dose. Do not take double or extra doses. Where should I keep my medicine? Keep out of the reach of children. Store between 2 and 30 degrees C (36 and 86 degrees F). Throw away any unused medicine after the expiration date. What should I tell my health care provider before I take this medicine? They need to know if you have any of these conditions: heart disease history of irregular heartbeat liver disease low levels of magnesium or potassium in the blood an unusual or allergic reaction to ondansetron, granisetron, other medicines, foods, dyes, or preservatives or trying to get breast-feeding What should I watch for while using this medicine? Check with your doctor or health nursing care attendant right away if you have any sign of an allergic reaction. You have been given the following additional information: Headache, Unspecified Ondansetron Hydrochloride Oral tablet (Electronically signed by Michell Deal P.A.-C 11/02/2016 23:44)
--- NOTE | 2016-11-03 23:32 | ED DISCHARGE INSTRUCTIONS ---
Patient: LEONILA KIM General Instructions [facility] VisitID: [id number] [place] [address] [id number], F Registration Date/Time: 11/02/2016 Acute headache. INSTRUCTIONS Warnings: Further evaluation is necessary. Prescription Medications: Zofran (orally disintegrating tablets) 4 mg: take 1 orally every 6 hours for 3 days as needed for nausea. Dispense ten (10). No refill. Substitution is permissible. Ultram 50 mg: take 1 orally every 6 hours for 3 days. Dispense ten (10). No refills. Substitution is permissible. Follow-up: Follow up with a specialist. ADDITIONAL INFORMATION Headache [Unspecified] The cause of your headache today is not clear, but it does not appear to be the sign of any serious illness. Under stress, some people tense the muscles of their shoulder, neck and scalp without knowing it. If this condition lasts long enough, a TENSION HEADACHE can occur. A MIGRAINE HEADACHE is caused by changes in blood flow to the brain. A migraine attack may be triggered by emotional stress, hormone changes during the menstrual cycle, oral contraceptives, alcohol use, certain foods containing tyramine, eye strain, weather changes, missing meals, lack of sleep or oversleeping. Other causes of headache include a viral illness with high fever, head injury with concussion, sinus, ear or throat infection, dental pain and TMJ (jaw joint) pain. More serious but less common causes of headache include stroke, brain hemorrhage, brain tumor, meningitis and encephalitis. Home Care: If you were given pain medicine for this headache, do not drive yourself home. Arrange for a ride, instead. When you get home, try to sleep. You should feel much better when you wake up. Apply heat to the back of your neck to relieve neck muscle spasm. Migraine headaches may respond best to an ice pack on the forehead or at the base of the skull. If you are having nausea or vomiting, follow a light diet until your headache is relieved. If you have a migraine type headache, use sunglasses when in the daylight or around bright indoor lighting until symptoms improve. Bright glaring light can worsen this kind of headache. Follow Up with your doctor if the headache is not better within the next 24 hours. If you have frequent headaches you should discuss a treatment plan with your primary care doctor. By being aware of the earliest signs of headache, and starting treatment right away, you may be able to stop the pain yourself. Get Prompt Medical Attention if any of the following occur: Worsening of your head pain or no improvement within 24 hours Repeated vomiting (unable to keep liquids down) Fever of 100.4F (38C) or higher, or as directed by your healthcare provider Stiff neck Extreme drowsiness, confusion or fainting Dizziness, vertigo (dizziness with spinning sensation) Weakness of an arm or leg or one side of the face Difficulty with speech or vision Ondansetron Hydrochloride Oral tablet What is this medicine? ONDANSETRON (on STACEY se suzan) is used to treat nausea and vomiting caused by chemotherapy. It is also used to prevent or treat nausea and vomiting after surgery. How should I use this medicine? Take this medicine by mouth with a glass of water. Follow the directions on your prescription label. Take your doses at regular intervals. Do not take your medicine more often than directed. Talk to your paper mill superintendent regarding the use of this medicine in children. Special care may be needed. What side effects may I notice from receiving this medicine? Side effects that you should report to your doctor or health acute care physical therapist as soon as possible: allergic reactions like skin rash, itching or hives, swelling of the face, lips or tongue breathing problems dizziness fast or irregular heartbeat feeling faint or lightheaded, falls fever and chills swelling of the hands or feet tightness in the chest Side effects that usually do not require medical attention (report to your doctor or health acute care physical therapist if they continue or are bothersome): constipation or diarrhea headache What may interact with this medicine? Do not take this medicine with any of the following medications: -apomorphine -cisapride -dofetilide -dronedarone -pimozide -thioridazine -ziprasidone This medicine may also interact with the following medications: -carbamazepine -phenytoin -rifampicin -tramadol -other medicines that prolong the QT interval (cause an abnormal heart rhythm) What if I miss a dose? If you miss a dose, take it as soon as you can. If it is almost time for your next dose, take only that dose. Do not take double or extra doses. Where should I keep my medicine? Keep out of the reach of children. Store between 2 and 30 degrees C (36 and 86 degrees F). Throw away any unused medicine after the expiration date. What should I tell my health care provider before I take this medicine? They need to know if you have any of these conditions: heart disease history of irregular heartbeat liver disease low levels of magnesium or potassium in the blood an unusual or allergic reaction to ondansetron, granisetron, other medicines, foods, dyes, or preservatives or trying to get breast-feeding What should I watch for while using this medicine? Check with your doctor or health acute care physical therapist right away if you have any sign of an allergic reaction. You have been given the following additional information: Headache, Unspecified Ondansetron Hydrochloride Oral tablet (Electronically signed by Abiel Crabtree MD 11/03/2016 23:32) Acute headache. INSTRUCTIONS Warnings: Further evaluation is necessary. Prescription Medications: Zofran (orally disintegrating tablets) 4 mg: take 1 orally every 6 hours for 3 days as needed for nausea. Dispense ten (10). No refill. Substitution is permissible. Ultram 50 mg: take 1 orally every 6 hours for 3 days. Dispense ten (10). No refills. Substitution is permissible. Follow-up: Follow up with a specialist. ADDITIONAL INFORMATION Headache [Unspecified] The cause of your headache today is not clear, but it does not appear to be the sign of any serious illness. Under stress, some people tense the muscles of their shoulder, neck and scalp without knowing it. If this condition lasts long enough, a TENSION HEADACHE can occur. A MIGRAINE HEADACHE is caused by changes in blood flow to the brain. A migraine attack may be triggered by emotional stress, hormone changes during the menstrual cycle, oral contraceptives, alcohol use, certain foods containing tyramine, eye strain, weather changes, missing meals, lack of sleep or oversleeping. Other causes of headache include a viral illness with high fever, head injury with concussion, sinus, ear or throat infection, dental pain and TMJ (jaw joint) pain. More serious but less common causes of headache include stroke, brain hemorrhage, brain tumor, meningitis and encephalitis. Home Care: If you were given pain medicine for this headache, do not drive yourself home. Arrange for a ride, instead. When you get home, try to sleep. You should feel much better when you wake up. Apply heat to the back of your neck to relieve neck muscle spasm. Migraine headaches may respond best to an ice pack on the forehead or at the base of the skull. If you are having nausea or vomiting, follow a light diet until your headache is relieved. If you have a migraine type headache, use sunglasses when in the daylight or around bright indoor lighting until symptoms improve. Bright glaring light can worsen this kind of headache. Follow Up with your doctor if the headache is not better within the next 24 hours. If you have frequent headaches you should discuss a treatment plan with your primary care doctor. By being aware of the earliest signs of headache, and starting treatment right away, you may be able to stop the pain yourself. Get Prompt Medical Attention if any of the following occur: Worsening of your head pain or no improvement within 24 hours Repeated vomiting (unable to keep liquids down) Fever of 100.4F (38C) or higher, or as directed by your healthcare provider Stiff neck Extreme drowsiness, confusion or fainting Dizziness, vertigo (dizziness with spinning sensation) Weakness of an arm or leg or one side of the face Difficulty with speech or vision Ondansetron Hydrochloride Oral tablet What is this medicine? ONDANSETRON (on STACEY se suzan) is used to treat nausea and vomiting caused by chemotherapy. It is also used to prevent or treat nausea and vomiting after surgery. How should I use this medicine? Take this medicine by mouth with a glass of water. Follow the directions on your prescription label. Take your doses at regular intervals. Do not take your medicine more often than directed. Talk to your paper mill superintendent regarding the use of this medicine in children. Special care may be needed. What side effects may I notice from receiving this medicine? Side effects that you should report to your doctor or health acute care physical therapist as soon as possible: allergic reactions like skin rash, itching or hives, swelling of the face, lips or tongue breathing problems dizziness fast or irregular heartbeat feeling faint or lightheaded, falls fever and chills swelling of the hands or feet tightness in the chest Side effects that usually do not require medical attention (report to your doctor or health acute care physical therapist if they continue or are bothersome): constipation or diarrhea headache What may interact with this medicine? Do not take this medicine with any of the following medications: -apomorphine -cisapride -dofetilide -dronedarone -pimozide -thioridazine -ziprasidone This medicine may also interact with the following medications: -carbamazepine -phenytoin -rifampicin -tramadol -other medicines that prolong the QT interval (cause an abnormal heart rhythm) What if I miss a dose? If you miss a dose, take it as soon as you can. If it is almost time for your next dose, take only that dose. Do not take double or extra doses. Where should I keep my medicine? Keep out of the reach of children. Store between 2 and 30 degrees C (36 and 86 degrees F). Throw away any unused medicine after the expiration date. What should I tell my health care provider before I take this medicine? They need to know if you have any of these conditions: heart disease history of irregular heartbeat liver disease low levels of magnesium or potassium in the blood an unusual or allergic reaction to ondansetron, granisetron, other medicines, foods, dyes, or preservatives or trying to get breast-feeding What should I watch for while using this medicine? Check with your doctor or health acute care physical therapist right away if you have any sign of an allergic reaction. You have been given the following additional information: Headache, Unspecified Ondansetron Hydrochloride Oral tablet (Electronically signed by Michell Deal P.A.-C 11/02/2016 23:44)
== END 2016-11-02 19:10 | disposition home or self-care (01) ==
LOC: ED SRH 13:55
DX: R51 Headache (principal); Z87.728 Personal history of other specified (corrected) congenital malformations of nervous system and sense organs; R42 Dizziness and giddiness; I10 Essential (primary) hypertension; K21.9 Gastro-esophageal reflux disease without esophagitis; Z79.899 Other long term (current) drug therapy; F17.210 Nicotine dependence, cigarettes, uncomplicated; Z88.5 Allergy status to narcotic agent
CPT/HCPCS: 81344; 90100; 90134; 90309; 92070; 92653; 95030; 95059